=== PATIENT | male | born 1930 | race Caucasian/White ===

== ENCOUNTER 2016-11-23 01:56 | Emergency (ER) | payer OTHER ==
[~2016-11-23] VITALS: Ht 172.7 cm; Wt 62.4 kg
[~2016-11-23 01:56] MED LIST: ASPI81TA19 PO; CEFD300C PO; CIPR0.3S LEFT EAR; ENAL2.5T PO; MULTTAB23 PO; PRED20 PO; WARF-58 PO; [UNRECOGNIZED DRUG - CODE] EACH EAR
[2016-11-23 02:02] VITALS: BP 150/89; PULSE 67; RESP 18; TEMP 98.2; O2SAT 96
[2016-11-23] MEDS ORDERED: TYLETAB34 PO (03:18)
[2016-11-23] MEDS ORDERED: CIPR0.3S LEFT EAR (03:18)
--- NOTE | 2016-11-23 03:23 | PD ---
HPI Chief Complaint: ENT Complaint Time Seen by Provider: 03:13 Travel History International Travel<30 days: No Contact w/Intl Traveler<30days: No Traveled to known affect area: No History of Present Illness HPI 86-year-old male presents to the emergency department for complaint of persistent ear pain and drainage. According to the who relays most of the history patient was seen for left ear pain and swelling prior to Tr[place] and was prescribed cefdinir and eardrops but does not recall the name of the eardrops. Patient was not improving and seemed to be getting worse so came to the emergency department Tr[place] 11/17/16 and was given prescription for Ciprodex drops but could not find a pharmacy that had the Ciprodex drops of received alternative eardrops and completed the course of oral antibiotic. Patient was feeling slightly improved but this morning had recurrent ear pain and returns to the emergency department for reevaluation. No fever no facial or submandibular swelling no lymphadenopathy no difficulty with swallowing continues to have redness and swelling the left ear with some drainage. Left ear pain is 8/10 in intensity. 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) Endocrine: No Gastrointestinal Disorders: No GERD: No Genitourinary: Yes Headaches: No Hypertension: Yes Immune Disorder: No Implanted Vascular Access Dvce: No Kidney Stones: No Musculoskeletal: Yes Neurologic: Yes Psychiatric: No Reproductive: No Respiratory: Yes (BRONCHITIES) Immunizations Current: No Migraines: No Renal Failure: No Seizures: No Sleep Apnea: No Thyroid Disease: No Ulcer: No Influenza Vaccination: No Past Surgical History Abdominal Surgery: Yes (HERNIA REPAIR, COLON SURGERY - NO TUMOR FOUND) Cardiac Surgery: No Ear Surgery: No Endocrine Surgery: No Eye Surgery: Yes (RIGHT EYE TURNED IN) Genitourinary Surgery: Yes (PROSTATE) Neurologic Surgery: No Oral Surgery: No Prostatectomy: Yes Thoracic Surgery: No Other Surgery: Yes Social History Alcohol Use: Yes (1 GLASS WINE/DAILY) Tobacco Use: No Substance Use: No Allergies-Medications (Allergen,Severity, Reaction): Coded Allergies: HMG-CoA Reductase Inhibitors (Unverified Adverse Reaction, Unknown, 11/23/16 ) muscle aches Reported Meds & Prescriptions Reported Meds & Active Scripts Active Reported Multi For Him 50+ (Multiple Vitamins W/ Minerals) 1 Tab Tab 1 Tab PO DAILY Aspir-Low (Aspirin) 81 Mg Tabdr 81 Mg PO DAILY Warfarin 3 Mg Tab 3 Mg PO DAILY Enalapril (Enalapril Maleate) 2.5 Mg Tab 2.5 Mg PO DAILY Review of Systems Except as stated in HPI: all other systems reviewed are Neg Physical Exam Narrative GENERAL: Elderly well-developed male in no acute distress no respiratory distress SKIN: Warm and dry. HEAD: Normocephalic. EYES: No scleral icterus. No injection or drainage. ENT: Mucous membranes moist airway is patent right tympanic membrane no redness dullness or loss of landmarks; left tympanic membrane is not visualized due to soft tissue swelling and erythema of the left external auditory canal with erythema and edema and scant drainage. NECK: Supple, trachea midline. No JVD or lymphadenopathy. CARDIOVASCULAR: Regular rate and rhythm without murmurs, gallops, or rubs. RESPIRATORY: Breath sounds equal bilaterally. No accessory muscle use. GASTROINTESTINAL: Abdomen soft, non-tender, nondistended. MUSCULOSKELETAL: No cyanosis, or edema. BACK: Nontender without obvious deformity. No CVA tenderness. Data Data Last Documented VS Vital Signs Date Time Temp Pulse Resp B/P Pulse Ox O2 Delivery O2 Flow Rate FiO2 11/23/16 02:02 98.2 67 18 150/89 96 MDM Medical Decision Making Medical Screen Exam Complete: Yes Emergency Medical Condition: Yes Medical Record Reviewed: Yes Differential Diagnosis Otitis externa, otitis media, mastoiditis, contact dermatitis, adverse medication reaction Narrative Course Patient with persistent edema of the external auditory canal and retained cerumen and purulence. Discussed with patient here with but patient refuses to have we are work placed as he had one placed to the emergency department and his last visit states it was too painful. Patient's had no fever or chills. Patient is completed a course of oral antibiotic. The patient did not have Ciprodex prescription filled. Patient rates pain 8/10 in intensity and is unable to tolerate nonsteroidal anti-inflammatory medications due to Coumadin therapy. Patient given oral dose of Tylenol 3 and prescription for Ciprodex. Culture obtained. 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 Follow-up with your primary care provider Take Tylenol 3 with codeine as needed for severe pain however be aware that codeine is a narcotic and may impair judgment, delay reaction time, increased risk for fall, use with caution, and may even cause constipation Take acetaminophen/Tylenol as needed for fever 100.4F or greater Med/Other Pt SpecificInfo: Prescription(s) given Scripts Acetaminophen-Codeine (Tylenol-Codeine #3)300-30 mg Tab1 Tab PO Q4H PRN (PAIN) # 7 TAB Ref 0 Prov:Lara Delcid MD 11/23/16 Ciprofloxacin-Dexamethasone Otic Drops (Ciprodex Otic Drops)0.3-0.1% Susp4 Drop LEFT EAR BID #1 BOTTLE Ref 0 Prov:Lara Delcid MD 11/23/16 Lara Delcid MD Nov 23, 2016 03:23
[2016-11-23] MEDS ORDERED: ACETAMINOPHEN/CODEINE 300 MG/30 MG TAB PO ONE (03:30)
== END 2016-11-23 04:31 | disposition home or self-care (01) ==
LOC: PHED 01:56
DX: H60.92 Unspecified otitis externa, left ear (principal); H92.02 Otalgia, left ear; L25.9 Unspecified contact dermatitis, unspecified cause; B96.5 Pseudomonas (aeruginosa) (mallei) (pseudomallei) as the cause of diseases classified elsewhere; I10 Essential (primary) hypertension; I25.10 Atherosclerotic heart disease of native coronary artery without angina pectoris; E78.00 Pure hypercholesterolemia, unspecified; Z79.01 Long term (current) use of anticoagulants
CPT/HCPCS: 87070; 87077; 87186; 99283

== ENCOUNTER 2017-03-04 10:25 | Inpatient (IN) | payer OTHER, MEDICARE ==
[2017-03-04] VITALS (7 sets, daily range): BP systolic 143–183; BP diastolic 67–93; PULSE 50–82; RESP 16–18; TEMP 97.2–98.3; O2SAT 93–97
[~2017-03-04] VITALS: Ht 172.7 cm; Wt 63.0 kg
[~2017-03-04 10:25] MED LIST changes: -CEFD300C PO; -PRED20 PO; +TYLETAB34 PO; -[UNRECOGNIZED DRUG - CODE] EACH EAR
[2017-03-04] MEDS ORDERED: SODIUM CHLORIDE 0.9% FLUSH 10 ML FLUSH IVF PRN (10:45)
--- NOTE | 2017-03-04 10:54 | PD ---
HPI Chief Complaint: Hip Injury Time Seen by Provider: 10:33 Travel History International Travel<30 days: No Contact w/Intl Traveler<30days: No Traveled to known affect area: No History of Present Illness HPI 86-year-old male presents to the emergency department cleaning a left hip pain after her fall. Patient has a history of CVA, left-sided weakness. He was walking in the kitchen when he fell to the side lying on his left hip. He has pain in the left hip, worse with any attempt at movement, and holds the hip flexed. States he normally walks with a walker. He otherwise is been feeling completely well and healthy. He is on warfarin, but denies A. fib. Emphatically denies hitting his head. States she landed on his left hip. He has no pain in his back knee or anywhere else. History Past Medical History Narrative Medical CVA, residual left-sided weakness Hypertension On warfarin Tetanus Vaccination: Unknown Influenza Vaccination: No Social History Alcohol Use: No Tobacco Use: No Allergies-Medications (Allergen,Severity, Reaction): Coded Allergies: HMG-CoA Reductase Inhibitors (Unverified Adverse Reaction, Unknown, 11/23/16 ) muscle aches Reported Meds & Prescriptions Reported Meds & Active Scripts Active Reported Aspir-Low (Aspirin) 81 Mg Tabdr 81 Mg PO DAILY Warfarin 3 Mg Tab 3 Mg PO DAILY Enalapril (Enalapril Maleate) 2.5 Mg Tab 2.5 Mg PO BID Review of Systems Except as stated in HPI: all other systems reviewed are Neg Physical Exam Narrative GENERAL: Well-appearing 86-year-old man, no acute distress. SKIN: Focused skin assessment warm/dry. HEAD: Atraumatic. Normocephalic. NECK: Trachea midline. No JVD. Moves neck freely. CARDIOVASCULAR: Regular rate and rhythm. No murmur appreciated. RESPIRATORY: No accessory muscle use. Clear to auscultation. Breath sounds equal bilaterally. GASTROINTESTINAL: Abdomen soft, non-tender, nondistended. Hepatic and splenic margins not palpable. MUSCULOSKELETAL: Left hip health flaccid, slightly externally rotated. Pain with any tensor range of motion. Knees unremarkable. NEUROLOGICAL: Awake and alert. No obvious cranial nerve deficits. Motor grossly within normal limits. Normal speech. PSYCHIATRIC: Appropriate mood and affect; insight and judgment normal. Data Data Last Documented VS Vital Signs Date Time Temp Pulse Resp B/P Pulse Ox O2 Delivery O2 Flow Rate FiO2 03/04/17 13:09 18 03/04/17 11:26 50 03/04/17 10:35 97.9 159/81 95 Orders Electrocardiogram (03/04/17 10:40) Complete Blood Count With Diff (03/04/17 10:40) Comprehensive Metabolic Panel (03/04/17 10:40) Prothrombin Time / Inr (Pt) (03/04/17 10:40) Act Partial Throm Time (Ptt) (03/04/17 10:40) Urinalysis - C+S If Indicated (03/04/17 10:40) Type And Screen (03/04/17 10:40) Chest, Single Ap (03/04/17 10:40) Femur (Ap & Lat/2vws) (03/04/17 10:40) Hip, Uni(Ap&Lat) W Ap Pelvis (03/04/17 10:40) Iv Access Insert/Monitor (03/04/17 10:40) Oximetry (03/04/17 10:40) Ecg Monitoring (03/04/17 10:40) Sodium Chloride 0.9% Flush (Ns Flush) (03/04/17 10:45) Fentanyl Inj (Fentanyl Inj) (03/04/17 12:00) Fentanyl Inj (Fentanyl Inj) (03/04/17 11:54) Hip, Ap Only Wo Ap Pelvis (03/04/17 ) Fresh Frozen Plasma (Ffp) (03/04/17 12:47) Blood Product Administration .UPON TRANSFUSION (03/04/17 12:47) Sodium Chlor 0.9% 250 Ml Inj (Ns 250 Ml (03/04/17 13:00) Diet Regular Basic (03/04/17 Lunch) Admit Order (Ed Use Only) (03/04/17 ) Labs Laboratory Tests Test 03/04/17 03/04/17 03/04/17 10:45 12:03 12:48 White Blood Count 6.7 TH/MM3 Red Blood Count 3.70 MIL/MM3 Hemoglobin 11.0 GM/DL Hematocrit 34.7 % Mean Corpuscular Volume 93.9 FL Mean Corpuscular Hemoglobin 29.8 PG Mean Corpuscular Hemoglobin 31.8 % Concent Red Cell Distribution Width 15.0 % Platelet Count 399 TH/MM3 Mean Platelet Volume 8.3 FL Neutrophils (%) (Auto) 65.3 % Lymphocytes (%) (Auto) 18.7 % Monocytes (%) (Auto) 13.3 % Eosinophils (%) (Auto) 2.0 % Basophils (%) (Auto) 0.7 % Neutrophils # (Auto) 4.4 TH/MM3 Lymphocytes # (Auto) 1.2 TH/MM3 Monocytes # (Auto) 0.9 TH/MM3 Eosinophils # (Auto) 0.1 TH/MM3 Basophils # (Auto) 0.0 TH/MM3 CBC Comment DIFF FINAL Differential Comment Prothrombin Time 20.5 SEC Prothromb Time International 1.8 RATIO Ratio Activated Partial 29.2 SEC Thromboplast Time Sodium Level 136 MEQ/L Potassium Level 4.3 MEQ/L Chloride Level 104 MEQ/L Carbon Dioxide Level 24.1 MEQ/L Anion Gap 8 MEQ/L Blood Urea Nitrogen 9 MG/DL Creatinine 0.68 MG/DL Estimat Glomerular Filtration 110 ML/MIN Rate Random Glucose 117 MG/DL Calcium Level 8.6 MG/DL Total Bilirubin 0.4 MG/DL Aspartate Amino Transf 30 U/L (AST/SGOT) Alanine Aminotransferase 22 U/L (ALT/SGPT) Alkaline Phosphatase 80 U/L Total Protein 7.3 GM/DL Albumin 3.5 GM/DL Blood Type A POSITIVE Antibody Screen NEGATIVE Blood Bank Comment [facility] Medical Decision Making Medical Screen Exam Complete: Yes Emergency Medical Condition: Yes Interpretation(s) My review of EKG: Sinus bradycardia rate of 51, normal axis, normal intervals, no acute ischemia. LABS: CBC remarkable for mild anemia. CMP is unremarkable. INR 1.8 X-ray left hip and pelvis shows intertrochanteric left hip fracture. Chest x-ray: No acute cardiopulmonary disease. Differential Diagnosis Left hip dislocation, left hip fracture, other occult injury, occult head injury Narrative Course Medical decision making INITIAL: 86-year-old man who presents to the emergency department complaining of left hip pain status post fall with injury. Looks well. See morphine with EMS. Is on warfarin but emphatically denies hitting his head. No pain anywhere else. We'll check x-rays, preop studies, reassess. Physician Communication Physician Communication [facility] She agrees to consult on patient will likely admitted to orthopedics. Spoke with Prakash, physician volunteer assistant with Dr. Walton. Request nothing by mouth after midnight. Would like to reverse warfarin. We'll discuss with Dr. Walton admission. Diagnosis Primary Impression: Closed left hip fracture Qualified Code: S72.002A - Closed left hip fracture, initial encounter Seth Armenta MD Mar 04, 2017 10:54
[2017-03-04 11:05] LABS: AUTOMATED NEUTROPHIL # 4.4 TH/MM3 (1.8-7.7); BASOPHIL % 0.7 % (0.0-2.0); EOSINOPHIL # 0.1 TH/MM3 (0-0.4); HEMATOCRIT 34.7 % (39.0-51.0); HEMO FLAGS DIFF FINAL; LYMPH % 18.7 % (9.0-44.0); LYMPHOCYTE # 1.2 TH/MM3 (1.0-4.8); MEAN CELL VOLUME 93.9 FL (80.0-100.0); MEAN CORPUSCULAR HEMOGLOBIN 29.8 PG (27.0-34.0); MEAN CORPUSCULAR HGB CONC 31.8 % (32.0-36.0); MONO % 13.3 % (0.0-8.0); NEUT % 65.3 % (16.0-70.0); PLATELET COUNT 399 TH/MM3 (150-450); WHITE BLOOD COUNT 6.7 TH/MM3 (4.0-11.0)
[2017-03-04 11:15] LABS: APTT (PATIENT) 29.2 SEC (24.3-30.1); INTERNATIONAL NORMALIZED RATIO 1.8 RATIO; PROTHROMBIN TIME - PATIENT 20.5 SEC (9.8-11.6)
[2017-03-04 11:19] LABS: ALT (GPT) 22 U/L (12-78); ANION GAP 8 MEQ/L (5-15); AST (GOT) 30 U/L (15-37); BICARBONATE 24.1 MEQ/L (21.0-32.0); BLOOD UREA NITROGEN 9 MG/DL (7-18); CHLORIDE 104 MEQ/L (98-107); GLOMERULAR FILTRATION RATE 110 ML/MIN (>89); POTASSIUM 4.3 MEQ/L (3.5-5.1); SODIUM (NA) 136 MEQ/L (136-145)
[2017-03-04 11:21] LABS: ALKALINE PHOSPHATASE 80 U/L (45-117); TOTAL BILIRUBIN ADULT 0.4 MG/DL (0.2-1.0)
--- NOTE | 2017-03-04 11:44 | RADRPT ---
EXAM DATE/TIME: 03/04/2017 10:51 [facility] COMPARISON: CHEST SINGLE AP, April 26, 2015, 16:57. INDICATIONS : Fall. Chest pain. MEDICAL HISTORY : None. SURGICAL HISTORY : None. ENCOUNTER: Initial ACUITY: 1 day PAIN SCORE: 0/10 LOCATION: Bilateral chest FINDINGS: The lungs are clear without infiltrate, nodule, or mass except for possible slight atelectasis in the left lung base. There is no appreciable pleural effusion for technique. Heart and mediastinum are unremarkable. There is old healed left clavicular fracture. There is no pneumothorax for technique. IMPRESSION: No acute cardiopulmonary disease. Orlando Serna MD on March 04, 2017 at 11:41 Board Certified Radiologist. This report was verified electronically.
--- NOTE | 2017-03-04 11:47 | RADRPT ---
EXAM DATE/TIME: 03/04/2017 10:56 [facility] COMPARISON: HIP LEFT (AP&LAT 2/3VWS) W AP PELVIS, March 04, 2017, 10:56. INDICATIONS : Fall. Left hip/leg pain. MEDICAL HISTORY : None. SURGICAL HISTORY : None. ENCOUNTER: Initial ACUITY: 1 day PAIN SCORE: 2/10 LOCATION: Left hip/leg FINDINGS: There is intertrochanteric fracture on the left side. Bony structures are osteopenic. There are ather osclerotic calcifications involving the visualized blood vessels chronic in nature. CONCLUSION: Left intertrochanteric fracture. Orlando Serna MD on March 04, 2017 at 11:44 Board Certified Radiologist. This report was verified electronically.
--- NOTE | 2017-03-04 11:48 | RADRPT ---
EXAM DATE/TIME: 03/04/2017 10:56 [facility] COMPARISON: No previous studies available for comparison. INDICATIONS : Fall. Left hip/pelvic pain. MEDICAL HISTORY : None. SURGICAL HISTORY : None. ENCOUNTER: Initial ACUITY: 1 day PAIN SCORE: 2/10 LOCATION: Left pelvis FINDINGS: Intertrochanteric fracture is present on the left. There are atherosclerotic calcifications involving the visualized blood vessels chronic in nature. There is diffuse osteopenia. CONCLUSION: Intertrochanteric fracture on the left side. Orlando Serna MD on March 04, 2017 at 11:45 Board Certified Radiologist. This report was verified electronically.
[2017-03-04] MEDS ORDERED: fentaNYL CITRATE 250 MCG/5 ML AMP IV PUSH ONE (12:00)
[2017-03-04] MEDS ORDERED: SODIUM CHLOR 0.9% 250 ML INJ 250 ML IV ONE (13:00)
--- NOTE | 2017-03-04 13:14 | RADRPT ---
EXAM DATE/TIME: 03/04/2017 12:42 [facility] COMPARISON: HIP LEFT (AP&LAT 2/3VWS) W AP PELVIS, March 04, 2017, 10:56. INDICATIONS : Post reduction left hip. MEDICAL HISTORY : None. SURGICAL HISTORY : None. ENCOUNTER: Subsequent ACUITY: 1 day PAIN SCORE: 10/10 LOCATION: Left hip. FINDINGS: Intertrochanteric fracture is seen on the left. CONCLUSION: Left intertrochanteric fracture. Orlando Serna MD on March 04, 2017 at 13:12 Board Certified Radiologist. This report was verified electronically.
[2017-03-04] MEDS ORDERED: ONDANSETRON HCL 4 MG/2 ML VIAL IV ONE (14:15)
--- NOTE | 2017-03-04 14:50 | EKG ---
Date Performed: 03/04/2017 Time Performed: 11:21:10 PTAGE: 86 years EKG: SINUS BRADYCARDIA BORDERLINE ECG NO PREVIOUS TRACING DOCTOR: Ernie Peoples Interpretating Date/Time 03/04/2017 14:48:11
--- NOTE | 2017-03-04 16:17 | HHI.HP ---
[facility]ician Krystle Dixon Do, MD Admission Diagnosis intertrochanteric left hip fracture Diagnoses: Chief Complaint: status post fall Travel History International Travel<30 Days: No Contact w/Intl Traveler <30 Da: No Traveled to Known Affected Are: No History of Present Illness patient is an 86 years old male , very hard of hearing, with history of CVA with mild left sided residual weakness,2 1/2 years ago who almost 80% of the time is wheelchair bound however still tries to be active and gets up and ambulate holding on to kitchen table for activity, every am- this time left leg apparently buckled and fell. found him on the floor. sure that he has not been on the floor for a long time as she had just been on the kitchen few minutes before. EMS immediately called and brought in to ER where IC fracture left hip. orthopedic service was informed and patient admitted for further evaluation and management. No syncopal episode notes, no shortness of breath, seizure activity reported. Patient is continent of urine and stools- -- + constipation and uses fibercon. patient currently is comfortable and denies any pain. patient appears comfortable when laying - but gets pain when Left LE is examined and extended even minimally while down in [facility] ER patient voided spontaneously Per , since CVA- left lower extremity would occasionally bucked and gets periodic "jerking" movement- was told may have "restless leg" Review of Systems ROS Limitations: Hearing Impaired Constitutional: DENIES: Diaphoretic episodes, Fatigue, Fever, Weight gain, Weight loss, Chills, Dizziness, Change in appetite, Night Sweats Endocrine: DENIES: Heat/cold intolerance, Polydipsia, Polyuria, Polyphagia Eyes: DENIES: Blurred vision, Diplopia, Eye inflammation, Eye pain, Vision loss , Photosensitivity, Double Vision Ears, nose, mouth, throat: DENIES: Tinnitus, Hearing loss, Vertigo, Nasal discharge, Oral lesions, Throat pain, Hoarseness, Ear Pain, Running Nose, Epistaxis, Sinus Pain, Toothache, Odynophagia Respiratory: DENIES: Apneas, Cough, Snoring, Wheezing, Hemoptysis, Sputum production, Shortness of breath Cardiovascular: DENIES: Chest pain, Palpitations, Syncope, Dyspnea on Exertion , PND, Lower Extremity Edema, Orthopnea, Claudication Gastrointestinal: COMPLAINS OF: Constipation Genitourinary: DENIES: Sexual dysfunction, Urinary frequency, Urinary incontinence, Urgency, Hematuria, Dysuria, Nocturia, Penile Discharge, Testicular Pain, Testicular Swelling Musculoskeletal: DENIES: Joint pain, Muscle aches, Stiffness, Joint Swelling, Back pain, Neck pain Integumentary: DENIES: Abnormal pigmentation, Nail changes, Pruritus, Rash Hematologic/lymphatic: DENIES: Bruising, Lymphadenopathy Immunologic/allergic: DENIES: Eczema, Urticaria Neurologic: DENIES: Abnormal gait, Headache, Localized weakness, Paresthesias, Seizures, Speech Problems, Tremor, Poor Balance Psychiatric: DENIES: Anxiety, Confusion, Mood changes, Depression, Hallucinations, Agitation, Suicidal Ideation, Homicidal Ideation, Delusions Past Family Social History Past Medical History hypertension S/P CVA left sided weakness 2014 Past Surgical History S/P explore lap- open close- for a suspicious colon mass- finding- "scar tissue " right inguinal hernia surgery Reported Medications Enalapril 2.5 mg po bid Coumadin 3 mg po daily ASA 81 mg po daily Fibercon for constipation Magcitrate 300 cc prn for constipation Allergies: Coded Allergies: HMG-CoA Reductase Inhibitors (Unverified Adverse Reaction, Unknown, 11/23/16 ) muscle aches Family History non contributory Social History smoker quit 40 years ago very occasion wine no history substance abuse Physical Exam Vital Signs Vital Signs Date Time Temp Pulse Resp B/P Pulse Ox O2 Delivery O2 Flow Rate FiO2 03/04/17 16:08 98 03/04/17 14:23 97.9 75 175/84 97 03/04/17 14:08 97.8 70 16 183/93 95 03/04/17 13:09 18 03/04/17 11:26 50 18 03/04/17 10:35 97.9 62 18 159/81 95 Physical Exam GENERAL:hard of hearing,in no apparent distress. SKIN: around left elbow area- with some skin tear- with some bleeding from the fall HEAD: Atraumatic. Normocephalic. No temporal or scalp tenderness. EYES: Pupils equal round and reactive. Extraocular motions intact. No scleral icterus. No injection or drainage. ENT: Nose without bleeding, purulent drainage or septal hematoma. Throat without erythema, tonsillar hypertrophy or exudate. Uvula midline. Airway patent. NECK: Trachea midline. No JVD or lymphadenopathy. Supple, nontender, no meningeal signs. CARDIOVASCULAR: Regular rate and rhythm without murmurs, gallops, or rubs. RESPIRATORY: Clear to auscultation. Breath sounds equal bilaterally. No wheezes , rales, or rhonchi. GASTROINTESTINAL: Abdomen soft, non-tender, nondistended. No hepato-splenomegaly , or palpable masses. No guarding., uncircumcised penis MUSCULOSKELETAL: Extremities without clubbing, cyanosis, or edema RLE. normal left LE is externally rotated and flexed on the knee- - marked resistance and pain to full extension, able to wiggle foot and toes, good peripheral pulses NEUROLOGICAL: Awake and alert. Very hard o f hearing. Cranial nerves II through XII intact. Motor - left lower extremity movement limited by pain. Laboratory Laboratory Tests Test 03/04/17 03/04/17 03/04/17 10:45 12:03 12:48 White Blood Count 6.7 Red Blood Count 3.70 Hemoglobin 11.0 Hematocrit 34.7 Mean Corpuscular Volume 93.9 Mean Corpuscular Hemoglobin 29.8 Mean Corpuscular Hemoglobin 31.8 Concent Red Cell Distribution Width 15.0 Platelet Count 399 Mean Platelet Volume 8.3 Neutrophils (%) (Auto) 65.3 Lymphocytes (%) (Auto) 18.7 Monocytes (%) (Auto) 13.3 Eosinophils (%) (Auto) 2.0 Basophils (%) (Auto) 0.7 Neutrophils # (Auto) 4.4 Lymphocytes # (Auto) 1.2 Monocytes # (Auto) 0.9 Eosinophils # (Auto) 0.1 Basophils # (Auto) 0.0 CBC Comment DIFF FINAL Differential Comment Prothrombin Time 20.5 Prothromb Time International 1.8 Ratio Activated Partial 29.2 Thromboplast Time Sodium Level 136 Potassium Level 4.3 Chloride Level 104 Carbon Dioxide Level 24.1 Anion Gap 8 Blood Urea Nitrogen 9 Creatinine 0.68 Estimat Glomerular Filtration 110 Rate Random Glucose 117 Calcium Level 8.6 Total Bilirubin 0.4 Aspartate Amino Transf 30 (AST/SGOT) Alanine Aminotransferase 22 (ALT/SGPT) Alkaline Phosphatase 80 Total Protein 7.3 Albumin 3.5 Blood Type A POSITIVE Antibody Screen NEGATIVE Blood Bank Comment Result Diagram: 03/04/17 1045 03/04/17 1045 Imaging Last Impressions Hip and Pelvis X-Ray 03/04/17 1040 Signed Impressions: Service Date/Time: Saturday, March 04, 2017 10:56 - CONCLUSION: Intertrochanteric fracture on the left side. Orlando Serna MD Femur X-Ray 03/04/17 1040 Signed Impressions: Service Date/Time: Saturday, March 04, 2017 10:56 - CONCLUSION: Left intertrochanteric fracture. Orlando Serna MD Hip X-Ray 03/04/17 0000 Signed Impressions: Service Date/Time: Saturday, March 04, 2017 12:42 - CONCLUSION: Left intertrochanteric fracture. Orlando Serna MD Assessment and Plan Assessment and Plan 86 years old male S/P mechanical fall Left intertrochanteric fracture. Orthopedic service consulted. Family wants to discuss with orthopedics options History of S/P CVA with mild left hemiparesis-- baseline mostly wheelchair bound neuro stable. Coumadin and ASA on hold for possible procedure History of hypertension. continue on enalapril 2.5 mg po bid. CXR and EKG reviewed by me. DC planning- - home with PT vs SNF. will consult case management for DC planning Discussed Condition With patient, and son Physician Certification 2 Midnight Certification Type: Admission for Inpatient Services Order for Inpatient Services The services are ordered in accordance with Medicare regulations or non- Medicare payer requirements, as applicable. In the case of services not specified as inpatient-only, they are appropriately provided as inpatient services in accordance with the 2-midnight benchmark. Estimated LOS (days): 3 days is the estimated time the patient will need to remain in the hospital, assuming treatment plan goals are met and no additional complications. Post-Hospital Plan: Not yet determined Laquita Bermudez MD Mar 04, 2017 16:17
[2017-03-04] MEDS ORDERED: HYDROmorphone HCL PF 1 MG/ML VIAL IV PUSH PRN (17:00)
[2017-03-04] MEDS ORDERED: MAGNESIUM CITRATE SOLN 300 ML BTL PO PRN (17:15)
[2017-03-04] MEDS: ENALAPRIL MALEATE 2.5 MG TAB PO SCH (23:32)
[2017-03-04] MEDS: DEXT 5%-NACL 0.9% 1000 ML INJ 1,000 ML IV SCH (23:37)
[2017-03-04] MEDS ORDERED: LACTATED RINGER'S 1000 ML IV PRN (23:45)
[2017-03-04] MEDS ORDERED: INSULIN HUMAN REGULAR 1,000 UNITS/10 ML VIAL SQ PRN (23:45)
[2017-03-04] MEDS ORDERED: SODIUM CHLORID 0.9% 500 ML IV PRN (23:45)
[2017-03-04] MEDS ORDERED: CHLORHEXIDINE GLUCONATE 2 % 1 PACK (2 CLOTHS) TOPICAL PRN (23:45)
[2017-03-04] MEDS ORDERED: POVIDONE IODINE 5% (ANTISEPSIS KIT) 4 APPLICATIONS EACH NARE PRN (23:45)
[2017-03-04] MEDS ORDERED: METOPROLOL TARTRATE 25 MG TAB PO PRN (23:45)
[2017-03-05 03:50] VITALS: BP 127/67; PULSE 67; RESP 16; TEMP 99.4; O2SAT 92
[2017-03-05 05:51] LABS: INTERNATIONAL NORMALIZED RATIO 1.6 RATIO; PROTHROMBIN TIME - PATIENT 17.5 SEC (9.8-11.6)
--- NOTE | 2017-03-05 06:30 | PD.ORT.PN ---
Subjective Subjective Remarks s/p fall at home hx of stroke and left sided weakness. ambulates with walker. left hip pain Objective Vitals Vital Signs Date Time Temp Pulse Resp B/P Pulse Ox O2 Delivery O2 Flow Rate FiO2 03/05/17 03:50 99.4 67 16 127/67 92 03/04/17 23:50 98.3 65 16 143/67 93 03/04/17 20:40 97.2 57 16 158/67 93 03/04/17 18:51 Room Air 03/04/17 16:08 98 03/04/17 16:00 97.3 82 17 161/93 95 03/04/17 14:23 97.9 75 175/84 97 03/04/17 14:08 97.8 70 16 183/93 95 03/04/17 13:09 18 03/04/17 11:26 50 18 03/04/17 10:35 97.9 62 18 159/81 95 I/O 03/04/17 03/04/17 03/04/17 03/05/17 03/05/17 03/05/17 07:00 15:00 23:00 07:00 15:00 23:00 Intake Total 380 ml 240 ml 286 ml Output Total 500 ml Balance 380 ml -260 ml 286 ml Intake Oral 240 ml IV Total 286 ml FFP 380 ml Output Urine Total 500 ml # Bowel Movements 0 Result Diagram: 03/04/17 1045 03/04/17 1045 Other Results Laboratory Tests Test 03/04/17 03/05/17 10:45 04:44 Prothrombin Time 20.5 SEC 17.5 SEC (9.8-11.6) (9.8-11.6) Prothromb Time International 1.8 RATIO 1.6 RATIO Ratio Imaging Last 24 hours Impressions Hip and Pelvis X-Ray 03/04/17 1040 Signed Impressions: Service Date/Time: Saturday, March 04, 2017 10:56 - CONCLUSION: Intertrochanteric fracture on the left side. Orlando Serna MD Femur X-Ray 03/04/17 1040 Signed Impressions: Service Date/Time: Saturday, March 04, 2017 10:56 - CONCLUSION: Left intertrochanteric fracture. Orlando Serna MD Objective Remarks LLE: pain in hip with motion. NVI distally. Assessment & Plan Assessment and Plan 1) Left Intertroch Hip Fx -NPO -1 unit of FFP -consents -surgery today Prakash Pierson Mar 05, 2017 06:30
[2017-03-05 06:40] VITALS: BP 120/62; PULSE 64; RESP 18; TEMP 98.6; O2SAT 94
[2017-03-05 08:11] VITALS: BP 120/67; PULSE 61; RESP 16; TEMP 99.9; O2SAT 92
[2017-03-05] MEDS: ENALAPRIL MALEATE 2.5 MG TAB PO SCH ×2 (08:20→22:36)
[2017-03-05] MEDS: CALCIUM POLYCARBOPHIL 625 MG TAB PO SCH (09:00)
--- NOTE | 2017-03-05 10:59 | HHI.PR ---
Subjective Remarks patient awake and alert, pain controlled, had a good night looking forward to surgery Objective Vitals Vital Signs Date Time Temp Pulse Resp B/P Pulse Ox O2 Delivery O2 Flow Rate FiO2 03/05/17 08:11 99.9 61 16 120/67 92 03/05/17 06:40 98.6 64 18 120/62 94 03/05/17 03:50 99.4 67 16 127/67 92 03/04/17 23:50 98.3 65 16 143/67 93 03/04/17 20:40 97.2 57 16 158/67 93 03/04/17 18:51 Room Air 03/04/17 16:08 98 03/04/17 16:00 97.3 82 17 161/93 95 03/04/17 14:23 97.9 75 175/84 97 03/04/17 14:08 97.8 70 16 183/93 95 03/04/17 13:09 18 03/04/17 11:26 50 18 I/O 03/04/17 03/04/17 03/04/17 03/05/17 03/05/17 03/05/17 07:00 15:00 23:00 07:00 15:00 23:00 Intake Total 380 ml 240 ml 286 ml 240 ml Output Total 500 ml 350 ml Balance 380 ml -260 ml 286 ml -110 ml Intake Oral 240 ml 240 ml IV Total 286 ml FFP 380 ml Output Urine Total 500 ml 350 ml # Bowel Movements 0 0 Result Diagram: 03/04/17 1045 03/04/17 1045 Imaging Last Impressions Hip and Pelvis X-Ray 03/04/17 1040 Signed Impressions: Service Date/Time: Saturday, March 04, 2017 10:56 - CONCLUSION: Intertrochanteric fracture on the left side. Orlando Serna MD Femur X-Ray 03/04/17 1040 Signed Impressions: Service Date/Time: Saturday, March 04, 2017 10:56 - CONCLUSION: Left intertrochanteric fracture. Orlando Serna MD Hip X-Ray 03/04/17 0000 Signed Impressions: Service Date/Time: Saturday, March 04, 2017 12:42 - CONCLUSION: Left intertrochanteric fracture. Orlando Serna MD Objective Remarks GENERAL: not in any distress SKIN: Warm and dry. EYES: No scleral icterus. No injection or drainage. CARDIOVASCULAR: Regular rate and rhythm without murmurs, gallops, or rubs. RESPIRATORY: Breath sounds equal bilaterally. No accessory muscle use. GASTROINTESTINAL: Abdomen soft, non-tender, nondistended. MUSCULOSKELETAL: No cyanosis, or edema. Left hip- post op dressing in place, no induration moves all extremities spontaneously Procedures 03/04- ORIF left hip A/P Assessment and Plan 86 years old male S/P mechanical fall with Left hip fracture Orthopedics ff- for OR today History of S/P CVA with mild left hemiparesis-- baseline mostly wheelchair bound neuro stable. - coumadin on hold- give FFP History of hypertension. continue on enalapril 2.5 mg po bid. DC planning- - SNF. Laquita Bermudez MD Mar 05, 2017 10:59 Laquita Bermudez MD Mar 05, 2017 10:59
[2017-03-05] MEDS ORDERED: FAMOTIDINE 20 MG/2 ML VIAL ONE (11:33)
[2017-03-05] MEDS ORDERED: VANCOMYCIN HCL 1000 MG VIAL ONE (11:48)
[2017-03-05] MEDS ORDERED: GENTAMICIN SULFATE 80 MG/2 ML VIAL ONE (11:48)
[2017-03-05] MEDS ORDERED: ceFAZolin 2 GM PREMIX 50 ML ONE (11:48)
[2017-03-05] MEDS ORDERED: VITA2000 PO (11:59)
[2017-03-05] MEDS ORDERED: HYDR-3288 PO (11:59)
[2017-03-05] MEDS ORDERED: CALCTAB19 PO (11:59)
[2017-03-05] MEDS ORDERED: ERGO1CAP30 PO (11:59)
[2017-03-05] MEDS ORDERED: NORMOSOL R INJ 1,000 ML IV ONE (12:00)
[2017-03-05] MEDS ORDERED: NEOSTIGMINE 3 MG/3 ML SYR IV ONE (12:00)
[2017-03-05] MEDS ORDERED: PROPOFOL 200 MG/20 ML AMP IV ONE (12:00)
[2017-03-05] MEDS ORDERED: ONDANSETRON HCL 4 MG/2 ML VIAL IV PUSH ONE (12:00)
[2017-03-05] MEDS ORDERED: ePHEDrine/NS 25 MG/5 ML SYR IV ONE (12:00)
[2017-03-05] MEDS ORDERED: fentaNYL CITRATE 250 MCG/5 ML AMP ONE (12:00)
[2017-03-05] MEDS ORDERED: VANCOMYCIN HCL 1000 MG VIAL OTHER ONE (13:10)
[2017-03-05] MEDS ORDERED: BUPIVACAINE/EPINEPHRINE 0.25% PF 30 ML VIAL ONE (13:41)
--- NOTE | 2017-03-05 13:50 | PD.OP ---
cc: Jas Walton MD Operative Report Date of Surgery: Mar 05, 2017 Preoperative Diagnosis: Left hip intertrochanteric fracture Postoperative Diagnosis: Procedure: Left hip reduction and intramedullary nail fixation Anesthesia: Gen. Surgeon: Jas Walton Magneto Electrician(s): Prakash Pierson PA-C The surgical procedure was assisted by my physician assistant director of nursing. My P.A. presence was necessary throughout this case for the manipulation and positioning of the surgical extremity. My P.A. was assisting me throughout the duration of this procedure. The skill set of a physician assistant director of nursing was medically necessary to complete this procedure. During the surgical case the surgical nurse was working at the back table and the physician assistant director of nursing was directly assisting me. Operation and Findings: Implants used: 12 mm 130 Synthes TFNA short troch nail Plan of activity: Weight-bear as tolerated Patient was seen and evaluated preoperatively. The patient has significant hip pain from intertrochanteric hip fracture. The risk and benefits of surgery were discussed in depth with the patient to include bleeding infection nonunion malunion and need for hip replacement painful hardware as well as medical competitions including but not stroke heart attack and . Informed consent was obtained. Operative site was marked. Patient was brought to the operating room and placed on fracture table. IV sedation was administered by anesthesiologist. Timeout procedure was performed. Hip and leg were prepped with alcohol followed by DuraPrep and draped in the usual sterile fashion. IV antibiotics were given prior to incision. Procedure began with reduction of fracture. Traction was applied. The leg was manipulated to achieve reduction. Excellent reduction was achieved. Fluoroscopy was used to confirm reduction. A three inch incision was made proximal to the trochanter. Subcutaneous tissue was dissected bluntly. Guidepin was placed at the tip of the trochanter and advanced into the femoral canal. Fluoroscopy confirmed appropriate guidepin placement. A opening reamer was placed over the guidepin. The Synthes TFNA nail was attached to the insertion handle. Nail was now placed through the tip of the trochanter into the femoral canal. Fluoroscopy confirmed appropriate nail placement. A second incision was made over the lateral thigh. Cannulas were placed through the insertion handle down to the femur. Guidepin was now placed through the femoral nail into the center of the femoral head. Fluoroscopy confirmed appropriate guidepin placement. Screw length was measured. Cannulated drill was placed over the guidepin. Appropriate length lag screw was now placed. Traction was released and compression was applied. The set screw was now tightened in dynamic mode. Using the insertion handle as a guide a distal interlocking screw was drilled and placed. Final fluoroscopy revealed well aligned fracture with well-placed hardware. Incision was closed with 3-0 Vicryl and hank. Sterile dressings were applied. Patient was awakened and transferred to recovery room. Jas Walton MD Mar 05, 2017 13:50
[2017-03-05] MEDS ORDERED: ACETAMINOPHEN/HYDROcodone 325 MG/7.5 MG TAB PO PRN ×2 (14:00→15:00)
[2017-03-05] MEDS ORDERED: ONDANSETRON HCL 4 MG/2 ML VIAL IVP PRN (14:00)
[2017-03-05] MEDS ORDERED: diphenhydrAMINE HCL 25 MG CAP PO PRN (14:00)
[2017-03-05] MEDS ORDERED: SODIUM CHLORIDE 0.9% FLUSH 10 ML FLUSH IV FLUSH PRN (14:15)
[2017-03-05] MEDS ORDERED: *ONDANSETRON 4 MG VIAL PERIprocedural Use ONLY ONE (14:44)
[2017-03-05] MEDS: MORPHINE SULFATE 4 MG/ML INJ IV PUSH PRN (15:00)
[2017-03-05] MEDS ORDERED: ERGOCALCIFEROL (VIT D2) 50,000 UNIT CAP PO ONE (15:00)
[2017-03-05] MEDS ORDERED: MORPHINE SULFATE 8 MG/ML INJ ONE (15:00)
[2017-03-05] MEDS: CALCIUM/VITAMIN D 250 MG/125 U TAB PO SCH (16:17)
[2017-03-05 16:31] VITALS: BP 119/64; PULSE 74; RESP 18; TEMP 97.9; O2SAT 96
--- NOTE | 2017-03-05 16:53 | RADRPT ---
EXAM DATE/TIME: 03/05/2017 13:42 [facility] COMPARISON: HIP LEFT (AP&LAT 2/3VWS) W AP PELVIS, March 04, 2017, 10:56. INDICATIONS : Left hip troch nail MEDICAL HISTORY : None. SURGICAL HISTORY : None. ENCOUNTER: Initial ACUITY: 1 day PAIN SCORE: Non-responsive. LOCATION: Left Hip FINDINGS: Examination of the left hip was performed. Medullary rubina and compression screw securing the left inte rtrochanteric fracture. Fracture fragments are in excellent anatomic alignment. CONCLUSION: Successful open reduction and internal fixation of left intratrochanteric fracture as above. Jaret Holbrook MD on March 05, 2017 at 16:48 Board Certified Radiologist. This report was verified electronically.
--- NOTE | 2017-03-05 17:35 | MB ---
cc: MARIAJOSE WARD TODD DATE OF CONSULTATION: 03/05/2017 REASON FOR CONSULTATION: Left hip intertrochanteric fracture. CONSULTING PHYSICIAN Dr. Hutchinson DAVID Murphy is an 86-year-old male who has a history of previous CVA with mild left-sided weakness. He is in a wheelchair most of the time but does ambulate short distances at home. He states that his left leg buckled and he fell. His found him on the floor. He presented to the emergency room where x-rays revealed a left hip intertrochanteric fracture. He is currently awake and alert on the orthopedic floor. His only complaint is his left hip. Pain is worse with movement and is improved with rest. He denies any dizziness, syncope, loss of consciousness. PAST MEDICAL HISTORY: 1. Hypertension. 2. History of CVA. 3. Chronic hearing loss. PAST SURGICAL HISTORY: 1. Exploratory laparotomy. 2. Inguinal hernia repair. MEDICATIONS: 1. Enalapril. 2. Coumadin. 3. Aspirin. 4. Fibercon. 5. Mag citrate. ALLERGIES: HMG CoA reductase inhibitor. SOCIAL HISTORY: The patient quit smoking 40 years ago. He drinks occasional wine. Denies drug use. FAMILY HISTORY: Noncontributory. REVIEW OF SYSTEMS The patient denies headache, visual changes, neck pain, chest pain, shortness of breath, abdominal pain, recent weight loss. He complains of left hip pain. PHYSICAL EXAMINATION The patient is a well-developed, thin 86 year-old male, who is awake and alert. Vital signs: Temperature 99.9, pulse 61, respirations 16, blood pressure 120/67, O2 sat 92% on room air. Head: The patient is normocephalic. Pupils are equal. Neck: Soft, nontender. Trachea is midline. Abdomen: Soft, nontender, nondistended. Extremities: Examination of bilateral upper extremities reveals no obvious pain or deformity with shoulder, elbow or wrist motion. He has intact sensation of all fingers. He has good capillary refill of all fingers. Skin is intact to both hands. Extremities: Examination of right leg reveals no significant pain with hip, knee or ankle motion. Skin is intact. Dorsalis pedis pulses palpable. Sensation is grossly intact. Examination of left leg reveals pain with any hip motion. He has no tension on his knee, tibia or ankle. Calf, compartments are soft. Dorsalis pedis pulses palpable. Sensation is intact. Skin is intact to left leg. X-RAYS X-rays of left hip reveal a mildly displaced left hip intertrochanteric fracture. IMPRESSION 1. History of CVA 2. Chronic Coumadin use. 3. Hypertension 4. Left hip intertrochanteric fracture. PLAN Treatment options were discussed with the patient. At this point, I would recommend reduction, intramedullary nail fixation. The risks of surgery include bleeding, infection, injury to arteries, nerves, blood vessels, nonunion, malunion, painful hardware, as well as medical complications including blood clot, stroke, heart attack and . All questions were answered. I will plan on surgery today. A mid-level provider in my office, nurse practitioner or PA, may see this patient on a follow-up basis and continue to implement the objective of this plan including: Starting or adjusting medications, injections of muscle, tendon, bursa or joints, cast application, orthotic or brace application, physical therapy, further radiographic studies including x-ray, MRI, CT, ultrasounds or bone scan, vascular studies, neurologic studies, or other specialist consultations, and proceeding with surgical management as appropriate. MD LANCE Nunez/NURY /1:54 PM /5:19 PM
[2017-03-05 19:50] VITALS: BP 134/64; PULSE 63; RESP 19; TEMP 97.3; O2SAT 95
[2017-03-05] MEDS: DEXT 5%-NACL 0.9% 1000 ML INJ 1,000 ML IV SCH (20:41)
[2017-03-05] MEDS: SODIUM CHLORIDE 0.9% FLUSH 10 ML FLUSH IV FLUSH SCH (20:42)
[2017-03-05 22:08] VITALS: O2SAT 95
[2017-03-06] VITALS (19 sets, daily range): BP systolic 90–173; BP diastolic 46–87; PULSE 62–138; RESP 16–20; TEMP 98–99.2; O2SAT 92–98
[2017-03-06] MEDS: MORPHINE SULFATE 4 MG/ML INJ IV PUSH PRN (04:20)
[2017-03-06 08:07] LABS: HEMATOCRIT 31.3 % (39.0-51.0); REVIEW FLAG FINAL
[2017-03-06] MEDS: CALCIUM/VITAMIN D 250 MG/125 U TAB PO SCH ×3 (08:49→18:30)
[2017-03-06] MEDS: ENALAPRIL MALEATE 2.5 MG TAB PO SCH ×2 (08:49→21:00)
[2017-03-06] MEDS: CALCIUM POLYCARBOPHIL 625 MG TAB PO SCH (08:49)
[2017-03-06] MEDS: CHOLECALCIFEROL (VIT D3) 5000 UNIT CAP PO SCH (08:49)
[2017-03-06] MEDS: SODIUM CHLORIDE 0.9% FLUSH 10 ML FLUSH IV FLUSH SCH ×2 (09:00→21:00)
--- NOTE | 2017-03-06 09:56 | HHI.PR ---
Subjective Remarks voiding "leaking" all night small amount of around 15 cc in urinal in the past had been ff by Dr. Moody per Objective Vitals Vital Signs Date Time Temp Pulse Resp B/P Pulse Ox O2 Delivery O2 Flow Rate FiO2 03/06/17 04:40 98.3 62 18 131/71 94 03/06/17 00:10 99.2 73 18 173/82 92 03/05/17 22:08 95 21 03/05/17 19:50 97.3 63 19 134/64 95 03/05/17 18:33 Nasal Cannula 2.00 03/05/17 16:31 97.9 74 18 119/64 96 03/05/17 15:30 Nasal Cannula 2.00 03/05/17 15:00 97.1 58 14 125/57 97 Nasal Cannula 2 03/05/17 14:45 60 13 126/63 97 Nasal Cannula 2 03/05/17 14:30 66 12 128/68 97 Nasal Cannula 2 03/05/17 14:15 73 12 103/55 96 Nasal Cannula 3 03/05/17 14:05 97.0 68 15 101/55 99 Nasal Cannula 3 I/O 03/05/17 03/05/17 03/05/17 03/06/17 03/06/17 03/06/17 07:00 15:00 23:00 07:00 15:00 23:00 Intake Total 286 ml 890 ml 781 ml 331 ml 240 ml Output Total 450 ml Balance 286 ml 440 ml 781 ml 331 ml 240 ml Intake Oral 240 ml 240 ml 240 ml IV Total 286 ml 150 ml 541 ml 331 ml Other 500 ml Output Urine Total 350 ml Estimated Blood Loss 100 ml # Voids 3 1 # Bowel Movements 0 0 0 Result Diagram: 03/06/17 0700 03/04/17 1045 Imaging Last Impressions Hip X-Ray 03/05/17 0000 Signed Impressions: Service Date/Time: Sunday, March 05, 2017 13:42 - CONCLUSION: Successful open reduction and internal fixation of left intratrochanteric fracture as above. Jaret Holbrook MD Hip and Pelvis X-Ray 03/04/17 1040 Signed Impressions: Service Date/Time: Saturday, March 04, 2017 10:56 - CONCLUSION: Intertrochanteric fracture on the left side. Orlando Serna MD Femur X-Ray 03/04/17 1040 Signed Impressions: Service Date/Time: Saturday, March 04, 2017 10:56 - CONCLUSION: Left intertrochanteric fracture. Orlando Serna MD Objective Remarks GENERAL: not in any distress SKIN: Warm and dry. EYES: No scleral icterus. No injection or drainage. CARDIOVASCULAR: Regular rate and rhythm without murmurs, gallops, or rubs. RESPIRATORY: Breath sounds equal bilaterally. No accessory muscle use. GASTROINTESTINAL: Abdomen soft, non-tender, nondistended. MUSCULOSKELETAL: No cyanosis, or edema. Left hip- post op dressing in place, no induration, bladder distended Left LE- slightly flex, some pain on full extension moves all extremities spontaneously Procedures 03/04- ORIF left hip A/P Assessment and Plan 86 years old male S/P mechanical fall with ORIF Left hip fracture 03/05 Orthopedics ff- PT consult Acute Urinary retention- post op see if voiding better when stood up check bladder scan now- straight cath if need- keep maciel if large amount consider flomax then DC maciel in 3 days for voiding trial History of S/P CVA with mild left hemiparesis-- baseline mostly wheelchair bound neuro stable. was on coumadin as OP- currently on Lovenox per ortho History of hypertension. continue on enalapril 2.5 mg po bid. HYpocalcemia/Vit D deficiency on supplements Lovenox for DVT prophylaxis DC planning- - SNF.- Laquita Cowan MD Mar 06, 2017 09:56
--- NOTE | 2017-03-06 10:03 | PD.ORT.PN ---
Subjective Subjective Remarks Resting comfortably with no new complaints. Objective Vitals Vital Signs Date Time Temp Pulse Resp B/P Pulse Ox O2 Delivery O2 Flow Rate FiO2 03/06/17 04:40 98.3 62 18 131/71 94 03/06/17 00:10 99.2 73 18 173/82 92 03/05/17 22:08 95 21 03/05/17 19:50 97.3 63 19 134/64 95 03/05/17 18:33 Nasal Cannula 2.00 03/05/17 16:31 97.9 74 18 119/64 96 03/05/17 15:30 Nasal Cannula 2.00 03/05/17 15:00 97.1 58 14 125/57 97 Nasal Cannula 2 03/05/17 14:45 60 13 126/63 97 Nasal Cannula 2 03/05/17 14:30 66 12 128/68 97 Nasal Cannula 2 03/05/17 14:15 73 12 103/55 96 Nasal Cannula 3 03/05/17 14:05 97.0 68 15 101/55 99 Nasal Cannula 3 I/O 03/05/17 03/05/17 03/05/17 03/06/17 03/06/17 03/06/17 07:00 15:00 23:00 07:00 15:00 23:00 Intake Total 286 ml 890 ml 781 ml 331 ml 240 ml Output Total 450 ml Balance 286 ml 440 ml 781 ml 331 ml 240 ml Intake Oral 240 ml 240 ml 240 ml IV Total 286 ml 150 ml 541 ml 331 ml Other 500 ml Output Urine Total 350 ml Estimated Blood Loss 100 ml # Voids 3 1 # Bowel Movements 0 0 0 Result Diagram: 03/06/17 0700 03/04/17 1045 Imaging Last 24 hours Impressions Hip and Pelvis X-Ray 03/04/17 1040 Signed Impressions: Service Date/Time: Saturday, March 04, 2017 10:56 - CONCLUSION: Intertrochanteric fracture on the left side. Orlando Serna MD Femur X-Ray 03/04/17 1040 Signed Impressions: Service Date/Time: Saturday, March 04, 2017 10:56 - CONCLUSION: Left intertrochanteric fracture. Orlando Serna MD Objective Remarks LLE: Clean dry dressings intact. Is having some difficulty straightening out his knee due to muscle spasms 2 hamstring. Intact sensation distally with strong dorsiflexion plantar flexion foot Assessment & Plan Assessment and Plan 1) Left Intertroch Hip Fx IM nail POD 1 Physical therapy weightbearing as tolerated Daily dressing changes beginning POD 2 Case management for discharge planning to rehabilitation Incentive spirometry Continue Coumadin Follow-up appointment with Dr. Walton or PA in 2 weeks Brendon Bonilla Jr. Mar 06, 2017 10:03
[2017-03-06] MEDS ORDERED: DILTIAZEM HCL 25 MG/5 ML VIAL ONE (13:01)
[2017-03-06] MEDS ORDERED: ENOXAPARIN SODIUM 30 MG/0.3 ML SYRINGE SQ SCH (13:15)
[2017-03-06] MEDS: TAMSULOSIN HCL 0.4 MG CAP PO SCH (13:19)
--- NOTE | 2017-03-06 13:20 | HHI.PR ---
Addendum to Inpatient Note Addendum Reason: Additional Documentation Additional Information patient HR- 150s- patient comfortable, no chest pain or shortness of breath NAD complains of some spasms of the left leg, no calf tenderness 12 LEKG- shows a fib 150s lungs clear irregularly irregular rhythm CArdizem 10mg IVP- rate slow down - rate variable- 90s-130s transfer to [facility] check BMP now Check ECHO, check venous doppler HR- 140s- give another 10 mg IV then start drip 5 mg/hr Cardiology consult known to Dr Mora d/w and patient Laquita Bermudez MD Mar 06, 2017 13:20
[2017-03-06] MEDS ORDERED: METOPROLOL TARTRATE 25 MG TAB PO SCH ×3 (13:30→14:00)
[2017-03-06] MEDS ORDERED: PILL SPLITTER OTHER PRN (13:45)
[2017-03-06] MEDS ORDERED: DILTIAZEM INJ 125 MG in SODIUM CHLORIDE 0.9% INJ 100 ML IV SCH (14:00)
[2017-03-06] MEDS ORDERED: DILTIAZEM HCL 25 MG/5 ML VIAL IV PUSH ONE (14:00)
[2017-03-06] MEDS ORDERED: DILTIAZEM HCL 25 MG/5 ML VIAL IVP ONE (14:00)
--- NOTE | 2017-03-06 16:18 | RADRPT ---
EXAM DATE/TIME: 03/06/2017 14:54 [facility] COMPARISON: No previous studies available for comparison. INDICATIONS : Left leg pain. MEDICAL HISTORY : CVA. PA. Hypercholesterol. Hypertension. SURGICAL HISTORY : Hernia repair. Colon surgery. Prostatectomy. ENCOUNTER: Initial ACUITY: 1 day PAIN SCORE: 0/10 LOCATION: Left leg TECHNIQUE: Venous ultrasound of the leg was performed from the inguinal ligament to the proximal calf. Real-time, color Doppler and spectral tracing, compression and augmentation techniques were us ed. FINDINGS: There is normal compressibility of the deep venous system from the inguinal region to the proximal ca lf. No echogenic clot is seen in the lumen of the common femoral, femoral, popliteal, and posterior tibial veins. There is a normal response of the venous system to proximal and distal augmentation an d respiration. CONCLUSION: There is normal compressibility of the deep venous system from the inguinal region to the proximal calf. No echogenic clot is seen in the lumen of the common femoral, femoral, popliteal , and posterior tibial veins. There is a normal response of the venous system to proximal and distal augmentation and respiration. CONCLUSION: Negative for deep venous thrombosis. Don Valdez MD FACR Don Valdez MD FACR on March 06, 2017 at 16:16 Board Certified Radiologist. This report was verified electronically.
[2017-03-06] MEDS: DEXT 5%-NACL 0.9% 1000 ML INJ 1,000 ML IV SCH (17:17)
[2017-03-06] MEDS: DILTIAZEM HCL 30 MG TAB PO SCH (21:32)
--- NOTE | 2017-03-06 22:03 | EC ---
Study Study Date:03/06/2017 STUDY CONCLUSIONS SUMMARY - Left ventricle: The cavity size was normal. Wall thickness was normal. Systolic function was normal. The estimated ejection fraction was 60%. Wall motion was normal; there were no regional wall motion abnormalities. - Aortic valve: Trace regurgitation. - Mitral valve: Mild regurgitation. If LV function is below 40, please consider prescribing an ACEI or ARB or document rationale for non-use. PROCEDURE DATA STUDY STATUS: Elective. Procedure: Transthoracic echocardiography. Image quality was good. Scanning was performed from the parasternal, apical, and subcostal acoustic windows. Study completion: The patient tolerated the procedure well. Transthoracic echocardiography. M-mode, complete 2D, complete spectral Doppler, and color Doppler. Patient status: Inpatient. CARDIAC ANATOMY LEFT VENTRICLE: The cavity size was normal. Wall thickness was normal. Systolic function was normal. The estimated ejection fraction was 60%. Wall motion was normal; there were no regional wall motion abnormalities. AORTIC VALVE: Trileaflet; mildly thickened leaflets. Doppler: Transvalvular velocity was within the normal range. There was no stenosis. Trace regurgitation. AORTA: Aortic root: The aortic root was normal in size. MITRAL VALVE: Structurally normal valve. Doppler: Transvalvular velocity was within the normal range. There was no evidence for stenosis. Mild regurgitation. Peak gradient: 2mm Hg (D). LEFT ATRIUM: The atrium was normal in size. RIGHT VENTRICLE: The cavity size was normal. Wall thickness was normal. PULMONIC VALVE: Doppler: Transvalvular velocity was within the normal range. There was no evidence for stenosis. No regurgitation. TRICUSPID VALVE: Structurally normal valve. Doppler: Transvalvular velocity was within the normal range. Trace regurgitation. PULMONARY ARTERY: The main pulmonary artery was normal-sized. Systolic pressure was within the normal range. RIGHT ATRIUM: The atrium was normal in size. PERICARDIUM: There was no pericardial effusion. SYSTEMIC VEINS: Inferior vena cava: The vessel was normal in size. BASIC MEASUREMENTS ADULT Normal Left ventricle LV internal dimension, ED, chordal level, *42.2 mm 43-52 PLAX LV internal dimension, ES, chordal level, 31.9 mm 23-38 PLAX Fractional shortening, chordal level, PLAX *24 % >29 LV posterior wall thickness, ED 8.06 mm IVS/LVPW ratio, ED 1.01 <1.3 Ventricular septum Septal thickness, ED 8.12 mm Aortic valve Leaflet separation 21 mm 15-26 Left atrium Anterior-posterior dimension 31 mm Right ventricle RV internal dimension, ED, PLAX 23.4 mm 19-38 BASIC MEASUREMENTS ADULT Normal Aortic valve Leaflet separation 21 mm 15-26 Aorta Root diameter, ED 37 mm 20-37 DOPPLER MEASUREMENTS ADULT Normal Mitral valve Peak E-wave velocity 73.1 cm/s Peak A-wave velocity 43.9 cm/s Peak gradient, D 2 mm Hg Peak E/A ratio 1.7 Tricuspid valve Regurgitant peak velocity 257 cm/s Peak RV-RA gradient, S 26 mm Hg Maximal regurgitant velocity 257 cm/s LEGEND: Mean values are shown as u=mean value. Asterisk (*) fermin values outside specified normal range. Prepared and signed by Drake Nieves [id number]
[2017-03-07] VITALS (19 sets, daily range): BP systolic 97–116; BP diastolic 56–74; PULSE 74–97; RESP 16; TEMP 97.8–99.1; O2SAT 92–98
[2017-03-07] MEDS ORDERED: DILTIAZEM HCL 30 MG TAB PO SCH
[2017-03-07] MEDS: DEXT 5%-NACL 0.9% 1000 ML INJ 1,000 ML IV SCH (00:10)
[2017-03-07] MEDS: DILTIAZEM HCL 30 MG TAB PO SCH ×2 (00:10→05:50)
[2017-03-07 07:16] LABS: POTASSIUM 3.2 MEQ/L (3.5-5.1)
[2017-03-07] MEDS ORDERED: DILTIAZEM-CD 180 MG CAP ER PO ONE (08:15)
[2017-03-07] MEDS ORDERED: RIVAROXABAN 20 MG TAB PO SCH (09:00)
[2017-03-07] MEDS ORDERED: POTASSIUM CHLOR 20 MEQ PREMIX 100 ML IV ONE (09:00)
--- NOTE | 2017-03-07 09:01 | MB ---
cc: [facility] DATE OF CONSULTATION 03/07/2017 REASON FOR CONSULTATION Atrial fibrillation. HISTORY OF PRESENT ILLNESS The patient is an 86-year-old white male with a history of coronary artery disease, CVA, hyperlipidemia, paroxysmal supraventricular tachycardia, hypertension, who was brought to the hospital after a fall resulting in left hip fracture. He is now status post left hip reduction and intramedullary nail fixation two days ago. Here in the hospital he has developed atrial fibrillation. The patient denies chest pain, shortness of breath, dizziness, syncope, near-syncope. Rarely he experiences minimal fluttering palpitations. He also denies pedal edema or paroxysmal nocturnal dyspnea. PAST MEDICAL HISTORY 1. Benign prostatic hypertrophy. 2. Coronary artery disease status post non-ST elevation myocardial infarction 04/27/2015 treated medically. 3. CVA in September 2014. 4. Hyperlipidemia. 5. Hypertension. 6. Paroxysmal supraventricular tachycardia demonstrated on Holter monitoring September 2014. CARDIAC MEDICATIONS AT HOME 1. Enalapril 2.5 mg b.i.d. 2. Warfarin 3 mg daily. 3. Aspirin 81 mg daily. ALLERGIES STATINS. FAMILY HISTORY Noncontributory. SOCIAL HISTORY The patient is a former smoker. There is no history of alcohol abuse. REVIEW OF SYSTEMS As in the History of Present Illness, otherwise negative or noncontributory. He also denies headache, visual changes, unilateral weakness or numbness, abdominal pain, melena, dyspepsia, bright red blood per rectum. PHYSICAL EXAMINATION VITAL SIGNS: Blood pressure 106/63 with a pulse of 85, respirations 16. IN GENERAL: He is a well-developed thin white male in no acute distress. NECK/HEENT EXAMINATION: Jugular venous pressure is normal. Carotid pulses are 2+ bilaterally without bruits. EXAMINATION OF THE CHEST: Clear lung lewis. CARDIAC EXAMINATION: He has an irregularly irregular rhythm without S3 or murmur. ABDOMEN: On abdominal examination he has a soft, nontender abdomen. Bowel sounds are present. There is no definite hepatosplenomegaly. EXAMINATION OF EXTREMITIES: No clubbing, cyanosis or edema. LABORATORY DATA WBC 6.7, hemoglobin 10.4, platelets 399. Potassium 3.2, BUN 11, creatinine 0.72, INR 1.6 on 03/05/2017. CHEST X-RAY No acute disease. EKG From her 02/1917 shows atrial fibrillation, nonspecific lateral ST and T-wave abnormalities. IMPRESSION Paroxysmal atrial fibrillation in this 86-year-old white male with a history of hypertension, coronary artery disease, CVA, paroxysmal supraventricular tachycardia. The patient remains in atrial fibrillation this morning with controlled heart rates on oral Cardizem. There is no evidence for acute coronary syndrome or pulmonary embolism. Indeed his thromboembolic risk with the atrial fibrillation is high given his history of stroke, hypertension and advanced age. Echocardiogram this admission is unremarkable showing normal ejection fraction. RECOMMENDATIONS 1. Continue oral Cardizem. Change to the long-acting form. 2. Overall would favor treating him with Xarelto 20 mg daily if okay from a surgical standpoint. 3. He is cleared for discharge from a cardiac standpoint; we will follow up in the office in about 3-4 weeks Dennis Mora MD [facility]/ADRIEN /8:21 AM /8:43 AM VERÓNICA
--- NOTE | 2017-03-07 09:09 | HHI.PR ---
Subjective Remarks telemetry- atrial fibrillation- rate 70s some plain when left LE fully extended on exam Objective Vitals Vital Signs Date Time Temp Pulse Resp B/P Pulse Ox O2 Delivery O2 Flow Rate FiO2 03/07/17 08:21 93 Nasal Cannula 1.50 03/07/17 08:00 80 03/07/17 07:30 96 Nasal Cannula 2.00 03/07/17 07:30 98.4 85 16 106/63 96 03/07/17 07:00 77 03/07/17 06:00 79 03/07/17 05:00 84 03/07/17 04:00 82 03/07/17 03:00 97.8 85 16 111/74 97 03/07/17 03:00 85 03/07/17 02:00 80 03/07/17 01:00 81 03/07/17 00:00 78 03/07/17 00:00 99.1 78 16 116/69 98 03/06/17 23:00 80 03/06/17 22:00 74 03/06/17 21:30 74 108/60 03/06/17 21:00 72 03/06/17 20:44 97 Nasal Cannula 1.50 03/06/17 20:00 97 Nasal Cannula 2.00 03/06/17 20:00 96 03/06/17 20:00 98.3 81 16 93/56 97 03/06/17 19:00 92 03/06/17 18:00 94 03/06/17 17:00 104 03/06/17 16:00 102 03/06/17 15:00 98.6 96 16 122/73 97 03/06/17 15:00 113 03/06/17 15:00 97 Nasal Cannula 2.00 03/06/17 13:30 98.6 123 16 100/46 97 03/06/17 13:30 98.0 122 20 118/62 93 03/06/17 13:07 98 03/06/17 13:05 84 18 90/52 93 03/06/17 12:10 98.8 138 18 125/87 96 03/06/17 12:02 94 21 I/O 03/06/17 03/06/17 03/06/17 03/07/17 03/07/17 03/07/17 07:00 15:00 23:00 07:00 15:00 23:00 Intake Total 331 ml 240 ml 744 ml Output Total 1850 ml 400 ml Balance 331 ml -1610 ml 344 ml Intake Oral 240 ml 240 ml IV Total 331 ml 504 ml Output Urine Total 1850 ml 400 ml Bladder Scan Volume Amount 887 ml # Voids 1 # Bowel Movements 0 0 Result Diagram: 03/06/17 0700 03/07/17 0620 Imaging Last Impressions Lower Extremity Ultrasound 03/06/17 0000 Signed Impressions: Service Date/Time: Monday, March 06, 2017 14:54 - CONCLUSION: There is normal compressibility of the deep venous system from the inguinal region to the proximal calf. No echogenic clot is seen in the lumen of the common femoral, femoral, popliteal, and posterior tibial veins. There is a normal response of the venous system to proximal and distal augmentation and respiration. CONCLUSION: Negative for deep venous thrombosis. Don Valdez MD Hip X-Ray 03/05/17 0000 Signed Impressions: Service Date/Time: Sunday, March 05, 2017 13:42 - CONCLUSION: Successful open reduction and internal fixation of left intratrochanteric fracture as above. Jaret Holbrook MD Hip and Pelvis X-Ray 03/04/17 1040 Signed Impressions: Service Date/Time: Saturday, March 04, 2017 10:56 - CONCLUSION: Intertrochanteric fracture on the left side. Orlando Serna MD Femur X-Ray 03/04/17 1040 Signed Impressions: Service Date/Time: Saturday, March 04, 2017 10:56 - CONCLUSION: Left intertrochanteric fracture. Orlando Serna MD Objective Remarks GENERAL: not in acute distress SKIN: Warm and dry. EYES: No scleral icterus. No injection or drainage. CARDIOVASCULAR: irregular rhythm RESPIRATORY: Breath sounds equal bilaterally. No accessory muscle use. GASTROINTESTINAL: Abdomen soft, non-tender, nondistended. MUSCULOSKELETAL: No cyanosis, or edema. Left hip- post op dressing in place, no induration Left LE- slightly flex, some pain on full extension moves all extremities spontaneously, grossly intact sensory Procedures 03/04- ORIF left hip Urinary Catheter: Yes Assessment to: Continue Maciel insert reason: Obstruction/Retention Date of Insertion: Mar 06, 2017 A/P Assessment and Plan 86 years old male S/P mechanical fall with ORIF Left hip fracture 03/05 Orthopedics ff- PT ff Acute Urinary retention- post op maciel placed 03/06 started flomax 03/06 then DC maciel in 3 days - 03/09 for voiding trial. OP referral to urology- thru SNF- Health Assessment And Treatment Teacher/Physician- seen by Dr. Moody in the past per Atrial fibrillation - now rate controlled history of paroxsymal a fib per Cardio notes as OP off Cardizem drip. Echo unremarkable Started on Cardizem 180 mg CD daily Xarelto 20 mg daily History of S/P CVA with mild left hemiparesis-- baseline mostly wheelchair bound neuro stable.. ASa daily History of hypertension. monitor on Cardizem CD 18o daily. Enalapril DC- monitor BPs Hypokalemia- replaced with IV K. start po KCL 20 meq po daily. BMP next day- in SNF HYpocalcemia/Vit D deficiency on supplements on Xarelto for A. fib DC planning- - SNF.- CM ff todayFF up with Dr. Alicia in 2 weeks FF up with Dr. Mora in 3 weeks Laquita Bermudez MD Mar 07, 2017 09:09
[2017-03-07] MEDS ORDERED: XARE20TA PO (09:18)
[2017-03-07] MEDS ORDERED: TAMS5CAP PO (09:19)
[2017-03-07] MEDS ORDERED: CARD180T PO (09:22)
[2017-03-07] MEDS ORDERED: POTA-163 PO (09:26)
[2017-03-07] MEDS: CALCIUM POLYCARBOPHIL 625 MG TAB PO SCH (09:29)
[2017-03-07] MEDS: CALCIUM/VITAMIN D 250 MG/125 U TAB PO SCH ×3 (09:29→17:52)
[2017-03-07] MEDS: CHOLECALCIFEROL (VIT D3) 5000 UNIT CAP PO SCH (09:29)
[2017-03-07] MEDS: TAMSULOSIN HCL 0.4 MG CAP PO SCH (09:30)
[2017-03-07] MEDS: SODIUM CHLORIDE 0.9% FLUSH 10 ML FLUSH IV FLUSH SCH (09:41)
--- NOTE | 2017-03-07 09:44 | HHI.DS ---
Discharge Summary Admission Date Mar 04, 2017 at 14:00 Discharge Date: Mar 07, 2017 Admitting Diagnosis intertrochanteric left hip fracture (1) Closed left hip fracture ICD Code: S72.002A Diagnosis: Principal (2) Atrial fibrillation ICD Code: I48.91 Diagnosis: Principal (3) Paroxysmal supraventricular tachycardia ICD Code: I47.1 Diagnosis: Principal (4) acute postop retention/hx BPH Diagnosis: Principal Procedures 03/04- ORIF left hip Brief History - From Admission patient is an 86 years old male , very hard of hearing, with history of CVA with mild left sided residual weakness,2 1/2 years ago who almost 80% of the time is wheelchair bound however still tries to be active and gets up and ambulate holding on to kitchen table for activity, every am- this time left leg apparently buckled and fell. found him on the floor. sure that he has not been on the floor for a long time as she had just been on the kitchen few minutes before. EMS immediately called and brought in to ER where IC fracture left hip. orthopedic service was informed and patient admitted for further evaluation and management. No syncopal episode notes, no shortness of breath, seizure activity reported. Patient is continent of urine and stools- -- + constipation and uses fibercon. patient currently is comfortable and denies any pain. patient appears comfortable when laying - but gets pain when Left LE is examined and extended even minimally while down in [facility] ER patient voided spontaneously Per , since CVA- left lower extremity would occasionally bucked and gets periodic "jerking" movement- was told may have "restless leg CBC/BMP: 03/06/17 0700 03/07/17 0620 Significant Findings Laboratory Tests Test 03/04/17 03/05/17 03/05/17 03/06/17 10:45 04:44 19:25 07:00 Red Blood Count 3.70 MIL/MM3 (4.50-5.90) Hemoglobin 11.0 GM/DL 10.4 GM/DL (13.0-17.0) (13.0-17.0) Hematocrit 34.7 % 31.3 % (39.0-51.0) (39.0-51.0) Mean Corpuscular Hemoglobin 31.8 % Concent (32.0-36.0) Monocytes (%) (Auto) 13.3 % (0.0-8.0) Prothrombin Time 20.5 SEC 17.5 SEC (9.8-11.6) (9.8-11.6) Random Glucose 117 MG/DL (74-106) 25-Hydroxy Vitamin D Total 16.1 ng/ML (30-100) Test 03/07/17 06:20 Potassium Level 3.2 MEQ/L (3.5-5.1) Random Glucose 115 MG/DL (74-106) Imaging Last Impressions Lower Extremity Ultrasound 03/06/17 0000 Signed Impressions: Service Date/Time: Monday, March 06, 2017 14:54 - CONCLUSION: There is normal compressibility of the deep venous system from the inguinal region to the proximal calf. No echogenic clot is seen in the lumen of the common femoral, femoral, popliteal, and posterior tibial veins. There is a normal response of the venous system to proximal and distal augmentation and respiration. CONCLUSION: Negative for deep venous thrombosis. Don Valdez MD Hip X-Ray 03/05/17 0000 Signed Impressions: Service Date/Time: Sunday, March 05, 2017 13:42 - CONCLUSION: Successful open reduction and internal fixation of left intratrochanteric fracture as above. Jaret Holbrook MD Hip and Pelvis X-Ray 03/04/17 1040 Signed Impressions: Service Date/Time: Saturday, March 04, 2017 10:56 - CONCLUSION: Intertrochanteric fracture on the left side. Orlando Serna MD Femur X-Ray 03/04/17 1040 Signed Impressions: Service Date/Time: Saturday, March 04, 2017 10:56 - CONCLUSION: Left intertrochanteric fracture. Orlando Serna MD PE at Discharge GENERAL: not in acute distress SKIN: Warm and dry. EYES: No scleral icterus. No injection or drainage. CARDIOVASCULAR: irregular rhythm RESPIRATORY: Breath sounds equal bilaterally. No accessory muscle use. GASTROINTESTINAL: Abdomen soft, non-tender, nondistended. MUSCULOSKELETAL: No cyanosis, or edema. Left hip- post op dressing in place, no induration Left LE- slightly flex, some pain on full extension, no calf swelling or tenderness moves all extremities spontaneously, grossly intact sensory Pt update on day of discharge awake and alert, oriented 3, pain conterolled doing well with PT telemetry- a fib- rate controlled Hospital Course 86 years old male S/P mechanical fall with ORIF Left hip fracture 03/05 Orthopedics ff- PT ff. doing well Left knee immobilizer-- per PT recommendation history of previous CVA Acute Urinary retention- post op maciel placed 03/06 started flomax 03/06 then DC mcaiel in 3 days - 03/09 for voiding trial. OP referral to urology- thru SNF- Telephone Clerk/Physician- seen by Dr. Moody in the past per Atrial fibrillation - now rate controlled history of paroxsymal a fib per Cardio notes as OP off Cardizem drip. Echo unremarkable Started on Cardizem 180 mg CD daily Xarelto 20 mg daily History of S/P CVA with mild left hemiparesis-- baseline mostly wheelchair bound neuro stable.. ASa daily History of hypertension. monitor on Cardizem CD 18o daily. Enalapril DC- monitor BPs Hypokalemia- replaced with IV K. start po KCL 20 meq po daily. BMP next day- in SNF HYpocalcemia/Vit D deficiency on supplements on Xarelto for A. fib DC planning- - SNF.- CM ff todayFF up with Dr. Alicia in 2 weeks FF up with Dr. Mora in 3 weeks Pt Condition on Discharge: Stable Discharge Disposition: Discharge to SNF Discharge Time: <= 30 minutes Discharge Instructions DIET: Follow Instructions for: Heart Healthy Diet Activities you can perform: Weight Bearing as Ehsan Other Activity Instructions: see specific ortho instruction Follow up Referrals: Cardiology - 3 Weeks with Dennis Mora MD Orthopedics - 2 Weeks with Jas Alicia MD New Orders: BASIC METABOLIC PROF - 03/08/17 New Medications: Calcium Carbonate-Vitamin D (Calcium 600+D 200) 600-200 Mg-Unit Tab 1 TAB PO BID Nutritional Supplement Days 30 Ref 0 TAB Cholecalciferol (Vitamin D3) 2,000 Unit Cap 2000 UNITS PO DAILY Nutritional Supplement #56 Ref 0 CAP Diltiazem ER 24 HR (Cardizem LA) 180 Mg Billy 180 MG PO DAILY PRN AFIB #30 Ref 1 TAB Ergocalciferol (Ergocalciferol) 50,000 Unit Cap 74677 UNITS PO Q7D Nutritional Supplement #56 CAP Hydrocodone-Acetaminophen ([place]) 7.5-325 mg Tab 1 TAB PO Q4H PRN PAIN #60 Ref 0 TAB Potassium Chloride ER (Potassium Chloride ER) 20 Meq Tab 20 MEQ PO DAILY Electrolyte Replacement #30 Ref 0 TAB Rivaroxaban (Xarelto) 20 Mg Tab 20 MG PO DAILY AFIB Days 30 TAB Tamsulosin (Flomax) 0.4 Mg Cap 0.4 MG PO DAILY URINRET Days 30 CAP Continued Medications: Aspirin DR (Aspir-Low) 81 Mg Tabdr 81 MG PO DAILY Laquita Bermudez MD Mar 07, 2017 09:44
[2017-03-07] MEDS ORDERED: KNEE IMMOBILIZE1 MIS (09:56)
[2017-03-07] MEDS ORDERED: ASPIRIN 81 MG CHEW TAB CHEW SCH (11:00)
--- NOTE | 2017-03-07 13:52 | EKG ---
Date Performed: 03/06/2017 Time Performed: 13:04:04 PTAGE: 86 years EKG: ATRIAL FIBRILLATION WITH RAPID VENTRICULAR RESPONSE NONSPECIFIC ST & T-WAVE ABNORMALITY ABN ORMAL RHYTHM ECG PREVIOUS TRACING : 03/04/2017 11.21 Compared to the previous tracing atrial fibrillation with r apid response has replaced normal Sinus rhythm . DOCTOR: Bob Jon Interpretating Date/Time 03/07/2017 13:49:47
[2017-03-07] MEDS ORDERED: DOCU1CAP39 PO (14:33)
[2017-03-07] MEDS ORDERED: SOD PHOSPHATE/SOD BIPHOSPHATE (ADULT) ENEMA 133ML RECTAL ONE (14:45)
[2017-03-07] MEDS ORDERED: DOCUSATE SODIUM 100 MG CAP PO SCH (15:00)
== END 2017-03-07 19:18 | DRG 481 ==
LOC: NEPC 10:25 → NEDA 14:00 → N06A 16:30 → HCIN 03-06 13:43
PROVIDERS: ADMIT Internal Medicine; ATTEND Internal Medicine
PROC: 30233K1 Transfusion of Nonautologous Frozen Plasma into Peripheral Vein, Percutaneous Approach (ICD-10-PCS; 2017-03-04)
PROC: 0QS736Z Reposition Left Upper Femur with Intramedullary Internal Fixation Device, Percutaneous Approach (ICD-10-PCS; principal; 2017-03-05 12:56)
PROC: 0T9B70Z Drainage of Bladder with Drainage Device, Via Natural or Artificial Opening (ICD-10-PCS; 2017-03-06)
DX: S72.142A Displaced intertrochanteric fracture of left femur, initial encounter for closed fracture (principal); I69.354 Hemiplegia and hemiparesis following cerebral infarction affecting left non-dominant side; I48.0 Paroxysmal atrial fibrillation; I47.1 Supraventricular tachycardia; W18.30XA Fall on same level, unspecified, initial encounter; Y92.099 Unspecified place in other non-institutional residence as the place of occurrence of the external cause; Y99.9 Unspecified external cause status; I10 Essential (primary) hypertension; Y92.000 Kitchen of unspecified non-institutional (private) residence as the place of occurrence of the external cause; Y93.01 Activity, walking, marching and hiking; Z79.01 Long term (current) use of anticoagulants; K59.00 Constipation, unspecified; Z87.891 Personal history of nicotine dependence; H91.90 Unspecified hearing loss, unspecified ear; Z99.3 Dependence on wheelchair; E78.5 Hyperlipidemia, unspecified; I25.10 Atherosclerotic heart disease of native coronary artery without angina pectoris; I25.2 Old myocardial infarction; N40.1 Benign prostatic hyperplasia with lower urinary tract symptoms; R33.8 Other retention of urine; N99.89 Other postprocedural complications and disorders of genitourinary system; Y83.8 Other surgical procedures as the cause of abnormal reaction of the patient, or of later complication, without mention of misadventure at the time of the procedure; Y92.239 Unspecified place in hospital as the place of occurrence of the external cause; E55.9 Vitamin D deficiency, unspecified
CPT/HCPCS: 36430; 71010; 73501; 73502; 73503; 73552; 76000; 80048; 80053; 82306; 82948; 85014; 85018; 85025; 85610; 85730; 86850; 86900; 86901; 86927; 93005; 93306; 93971; 96374; C1713; J0690; J1170; J1580; J1650; J2270; J2405; J2710; J3010; J3370; J3480; J7042; J7050; J7120; L1830; P9017

== ENCOUNTER 2017-08-11 18:53 | Emergency (ER) | payer OTHER ==
[~2017-08-11] VITALS: Ht 170.2 cm; Wt 60.3 kg
[~2017-08-11 18:53] MED LIST changes: +CALCTAB19 PO; +CARD180T PO; -CIPR0.3S LEFT EAR; +DOCU1CAP39 PO; +ERGO1CAP30 PO; +HYDR-3288 PO; +KNEE IMMOBILIZE1 MIS; -MULTTAB23 PO; +POTA-163 PO; +TAMS5CAP PO; -TYLETAB34 PO; +VITA2000 PO; +XARE20TA PO
[2017-08-11 18:56] VITALS: BP 159/75; TEMP 98.2; O2SAT 95
[2017-08-11 19:26] VITALS: BP 169/84; PULSE 59; RESP 16; O2SAT 100
[2017-08-11] MEDS ORDERED: HYDR500C PO (19:27)
--- NOTE | 2017-08-11 19:27 | PD ---
HPI Chief Complaint: Lump, Cyst, Hernia Time Seen by Provider: 19:03 Travel History International Travel<30 days: No Contact w/Intl Traveler<30days: No Traveled to known affect area: No History of Present Illness HPI The patient is an 86-year-old male who is taking Coumadin who had a shot 3-4 weeks ago in his right shoulder, apparently a steroid shot, because of shoulder pain. The shot was given by his orthopedic surgeon, Dr. Alicia. Yesterday the noted blueness in the antecubital fossa on the right. The did the INR this morning using a machine that she has at home and it was 3.0. The patient denies any melanotic or bloody stools. He denies any other lesions similar to the one on the antecubital fossa, severe headache, neurologic symptoms, epistaxis, hemoptysis or hematuria. The area is not painful in the right antecubital fossa. PFSH Past Medical History Hx Anticoagulant Therapy: Yes Arthritis: Yes Asthma: No Blood Disorders: No Anxiety: No Depression: No Heart Rhythm Problems: No Cancer: No Cardiovascular Problems: Yes ("MILD HEART ATTACK" 2014) High Cholesterol: Yes Chest Pain: No Congestive Heart Failure: No COPD: No Cerebrovascular Accident: Yes Diabetes: No Diminished Hearing: No Endocrine: No Gastrointestinal Disorders: No GERD: No Genitourinary: Yes Headaches: No Hypertension: Yes Immune Disorder: No Implanted Vascular Access Dvce: No Kidney Stones: No Musculoskeletal: Yes Neurologic: Yes Psychiatric: No Reproductive: No Respiratory: No Immunizations Current: No Migraines: No Renal Failure: No Seizures: No Sleep Apnea: No Thyroid Disease: No Ulcer: No Past Surgical History Abdominal Surgery: Yes (HERNIA REPAIR, COLON SURGERY - NO TUMOR FOUND) Cardiac Surgery: No Ear Surgery: No Endocrine Surgery: No Eye Surgery: Yes (RIGHT EYE TURNED IN) Genitourinary Surgery: Yes (PROSTATE) Neurologic Surgery: No Oral Surgery: No Prostatectomy: Yes Thoracic Surgery: No Other Surgery: Yes Social History Alcohol Use: No Tobacco Use: No Substance Use: No Allergies-Medications (Allergen,Severity, Reaction): Coded Allergies: amlodipine (Unverified Adverse Reaction, Unknown, 08/11/17) muscle aches atorvastatin (Unverified Adverse Reaction, Unknown, 08/11/17) muscle aches pravastatin (Unverified Adverse Reaction, Unknown, 08/11/17) muscle aches simvastatin (Unverified Adverse Reaction, Unknown, 08/11/17) muscle aches Reported Meds & Prescriptions Reported Meds & Active Scripts Active Dok (Docusate Sodium) 100 Mg Cap 100 Mg PO BID 10 Days Knee Immobilizer 22"/Tri 1 Mis Mis 1 Ea .ROUTE DIRECTED Potassium Chloride ER (Potassium Chloride) 20 Meq Tab 20 Meq PO DAILY Cardizem LA (Diltiazem ER 24 HR) 180 Mg Billy 180 Mg PO DAILY PRN Flomax (Tamsulosin HCl) 0.4 Mg Cap 0.4 Mg PO DAILY 30 Days Xarelto (Rivaroxaban) 20 Mg Tab 20 Mg PO DAILY 30 Days Calcium 600+D 200 (Calcium Carbonate-Vitamin D) 600-200 Mg-Unit Tab 1 Tab PO BID 30 Days Vitamin D3 (Cholecalciferol) 2,000 Unit Cap 2,000 Units PO DAILY Ergocalciferol 50,000 Unit Cap 50,000 Units PO Q7D [place] (Hydrocodone-Acetaminophen) 7.5-325 mg Tab 1 Tab PO Q4H PRN Reported Aspir-Low (Aspirin) 81 Mg Tabdr 81 Mg PO DAILY Warfarin 3 Mg Tab 3 Mg PO DAILY Enalapril (Enalapril Maleate) 2.5 Mg Tab 2.5 Mg PO BID Review of Systems Except as stated in HPI: all other systems reviewed are Neg Physical Exam Narrative GENERAL: Well-nourished, alert and oriented, elderly patient in no apparent distress with his right antecubital fossa hematoma. His vital signs show blood pressure 159/75 and pulse rate of 58 but are otherwise normal. SKIN: Focused skin assessment warm/dry. There is a loose area of skin discoloration and small hematoma in the right antecubital fossa measuring about 3 x 1 cm. The area is not tender and there is no evidence of infection. There is yellow skin discoloration that starts at the shoulder and goes all the way down to the antecubital fossa. HEAD: Normocephalic. EYES: No scleral icterus. No injection or drainage. NECK: Supple, trachea midline. No JVD or lymphadenopathy. CARDIOVASCULAR: Regular rate and rhythm without murmurs, gallops, or rubs. RESPIRATORY: Breath sounds equal bilaterally. No accessory muscle use. GASTROINTESTINAL: Abdomen soft, non-tender, nondistended. MUSCULOSKELETAL: No cyanosis, or edema. BACK: Nontender without obvious deformity. No CVA tenderness. Data Data Last Documented VS Vital Signs Date Time Temp Pulse Resp B/P (MAP) Pulse Ox O2 Delivery O2 Flow Rate FiO2 08/11/17 18:56 98.2 58 20 159/75 (103) 95 MDM Medical Decision Making Medical Screen Exam Complete: Yes Emergency Medical Condition: Yes Medical Record Reviewed: Yes Differential Diagnosis Cellulitis right antecubital fossa, hematoma right antecubital fossa, coagulopathy from Coumadin, abscess Narrative Course There is no evidence for cellulitis, the area is not tender and is not hot. The Coumadin coagulopathy is unlikely, the patient had a normal INR this morning and there are no other signs of bleeding on this patient. This is not an abscess. The patient has a hematoma on the right antecubital fossa that was likely from the steroid injection done 3-4 weeks ago on the right shoulder. There is yellow and is tracking down from the right shoulder all the way to the antecubital fossa. The blood apparently worked its way down to the antecubital fossa. The area is not tender. Diagnosis Primary Impression: Hematoma Additional Instructions: As we discussed, elevate your arm above your heart. Keep a close eye for infection, it will become warm/hot and painful. Return immediately if this occurs. Follow-up with Dr. Alicia as scheduled. Also keep a close eye out for signs of Coumadin toxicity like black or bloody stools, other bruises forming. Med/Other Pt SpecificInfo: No Change to Meds Disposition: 01 DISCHARGE HOME Condition: Stable Luisito Ayoub MD Aug 11, 2017 19:27
[2017-08-11 19:34] VITALS: BP 147/74
== END 2017-08-11 19:44 | disposition home or self-care (01) ==
LOC: PHED 18:53
DX: S40.011A Contusion of right shoulder, initial encounter (principal); Y83.8 Other surgical procedures as the cause of abnormal reaction of the patient, or of later complication, without mention of misadventure at the time of the procedure; E78.00 Pure hypercholesterolemia, unspecified; I10 Essential (primary) hypertension; I25.2 Old myocardial infarction; Z86.73 Personal history of transient ischemic attack (TIA), and cerebral infarction without residual deficits; Z79.01 Long term (current) use of anticoagulants
CPT/HCPCS: 99282

== ENCOUNTER 2017-11-07 11:55 | Emergency (ER) | payer OTHER ==
[~2017-11-07] VITALS: Ht 172.7 cm; Wt 61.6 kg
[~2017-11-07 11:55] MED LIST changes: -ERGO1CAP30 PO; +HYDR500C PO; -POTA-163 PO; +VITA500012 PO; -XARE20TA PO
[2017-11-07 12:11] VITALS: BP 161/81; PULSE 60; RESP 18; TEMP 98.4; O2SAT 96
--- NOTE | 2017-11-07 12:25 | PD ---
HPI Chief Complaint: Musculoskeletal Complaint Time Seen by Provider: 12:12 Travel History International Travel<30 days: No Contact w/Intl Traveler<30days: No Traveled to known affect area: No History of Present Illness HPI Patient's 87 years old and complains of pain in the right upper quadrant and left upper quadrant. The pain is most noticeable overlying the inferior costal margins bilaterally. He was started on ruvoastatin last Saturday and after the first symptoms started abated somewhat after stopping the medication for 2 days and then return even worse after resuming it 2 days previously. It has since remained. It's worse with palpation. No shortness of breath. No fever nausea or vomiting. notes patient had black stool this morning. The patient takes Coumadin. Last colonoscopy was about 5 years ago. PFSH Past Medical History Hx Anticoagulant Therapy: Yes (Warfarin ) Arthritis: Yes Asthma: No Blood Disorders: No Anxiety: No Depression: No Heart Rhythm Problems: No Cancer: No Cardiovascular Problems: Yes (high chol) High Cholesterol: Yes Chest Pain: No Congestive Heart Failure: No COPD: No Cerebrovascular Accident: Yes Diabetes: No Diminished Hearing: No Endocrine: No Gastrointestinal Disorders: No GERD: No Genitourinary: Yes Headaches: No Hypertension: Yes Immune Disorder: No Implanted Vascular Access Dvce: No Kidney Stones: No Musculoskeletal: Yes Neurologic: Yes Psychiatric: No Reproductive: No Respiratory: No Immunizations Current: No Migraines: No Renal Failure: No Seizures: No Sleep Apnea: No Thyroid Disease: No Ulcer: No Past Surgical History Abdominal Surgery: Yes (HERNIA REPAIR, COLON SURGERY - NO TUMOR FOUND) Cardiac Surgery: No Ear Surgery: No Endocrine Surgery: No Eye Surgery: Yes (RIGHT EYE TURNED IN) Genitourinary Surgery: Yes (PROSTATE) Neurologic Surgery: No Oral Surgery: No Prostatectomy: Yes Thoracic Surgery: No Other Surgery: Yes Social History Alcohol Use: No Tobacco Use: No Substance Use: No Allergies-Medications (Allergen,Severity, Reaction): Coded Allergies: amlodipine (Unverified Adverse Reaction, Unknown, 08/11/17) muscle aches atorvastatin (Unverified Adverse Reaction, Unknown, 08/11/17) muscle aches pravastatin (Unverified Adverse Reaction, Unknown, 08/11/17) muscle aches simvastatin (Unverified Adverse Reaction, Unknown, 08/11/17) muscle aches Reported Meds & Prescriptions Reported Meds & Active Scripts Active Hydrocodone-Acetaminophen 5-325 mg Tab 1 Tab PO Q6H PRN Dok (Docusate Sodium) 100 Mg Cap 100 Mg PO BID 10 Days Knee Immobilizer 22"/Tri 1 Mis Mis 1 Ea .ROUTE DIRECTED Cardizem LA (Diltiazem ER 24 HR) 180 Mg Billy 180 Mg PO DAILY PRN Reported Rosuvastatin (Rosuvastatin Calcium) 5 Mg Tab 5 Mg PO DAILY Hydrea (Hydroxyurea) 500 Mg Cap 500 Mg PO DAILY Aspir-Low (Aspirin) 81 Mg Tabdr 81 Mg PO DAILY Warfarin 3 Mg Tab 3 Mg PO DAILY Review of Systems Except as stated in HPI: all other systems reviewed are Neg General / Constitutional: No: Fever Cardiovascular: Positive: Chest Pain or Discomfort Physical Exam Narrative GENERAL: 87 yo m, wnwd, mild distress 2/2 pain SKIN: Warm and dry. HEAD: Atraumatic. Normocephalic. EYES: Pupils equal and round. No scleral icterus. No injection or drainage. ENT: No nasal bleeding or discharge. Mucous membranes pink and moist. NECK: Trachea midline. No JVD. CARDIOVASCULAR: Regular rhythm. Rate in the 60s RESPIRATORY: Breath sounds clear bilaterally. Minimal TTP overlying inferior costal margins bilaterally. GASTROINTESTINAL: Abdomen soft, non-tender, nondistended. Hepatic and splenic margins not palpable. MUSCULOSKELETAL: Extremities without clubbing, cyanosis, or edema. No obvious deformities. NEUROLOGICAL: Awake and alert. No obvious cranial nerve deficits. Motor grossly within normal limits. Five out of 5 muscle strength in the arms and legs. Normal speech. PSYCHIATRIC: Appropriate mood and affect; insight and judgment normal. Data Data Last Documented VS Vital Signs Date Time Temp Pulse Resp B/P (MAP) Pulse Ox O2 Delivery O2 Flow Rate FiO2 11/07/17 12:40 96 Room Air 11/07/17 12:11 60 18 161/81 (107) 98.4 Orders Orders Electrocardiogram (11/07/17 12:20) Ckmb (Isoenzyme) Profile (11/07/17 12:20) Complete Blood Count With Diff (11/07/17 12:20) Comprehensive Metabolic Panel (11/07/17 12:20) Magnesium (Mg) (11/07/17 12:20) Prothrombin Time / Inr (Pt) (11/07/17 12:20) Act Partial Throm Time (Ptt) (11/07/17 12:20) Troponin I (11/07/17 12:20) Ecg Monitoring (11/07/17 12:20) Iv Access Insert/Monitor (11/07/17 12:20) Oximetry (11/07/17 12:20) Oxygen Administration (11/07/17 12:20) Morphine Inj (Morphine Inj) (11/07/17 12:30) Sodium Chloride 0.9% Flush (Ns Flush) (11/07/17 12:30) Morphine Inj (Morphine Inj) (11/07/17 12:30) CKMB (11/07/17 12:20) CKMB% (11/07/17 12:20) Ed Discharge Order (11/07/17 13:40) Labs Laboratory Tests Test 11/07/17 12:20 White Blood Count 7.3 TH/MM3 Red Blood Count 4.02 MIL/MM3 Hemoglobin 13.8 GM/DL Hematocrit 43.9 % Mean Corpuscular Volume 109.1 FL Mean Corpuscular Hemoglobin 34.3 PG Mean Corpuscular Hemoglobin Concent 31.5 % Red Cell Distribution Width 14.2 % Platelet Count 493 TH/MM3 Mean Platelet Volume 8.5 FL Neutrophils (%) (Auto) 67.5 % Lymphocytes (%) (Auto) 18.0 % Monocytes (%) (Auto) 13.3 % Eosinophils (%) (Auto) 0.5 % Basophils (%) (Auto) 0.7 % Neutrophils # (Auto) 4.9 TH/MM3 Lymphocytes # (Auto) 1.3 TH/MM3 Monocytes # (Auto) 1.0 TH/MM3 Eosinophils # (Auto) 0.0 TH/MM3 Basophils # (Auto) 0.1 TH/MM3 CBC Comment DIFF FINAL Differential Comment Prothrombin Time 23.6 SEC Prothromb Time International Ratio 2.3 RATIO Activated Partial Thromboplast Time 32.4 SEC Blood Urea Nitrogen 12 MG/DL Creatinine 0.86 MG/DL Random Glucose 82 MG/DL Total Protein 8.6 GM/DL Albumin 4.1 GM/DL Calcium Level 8.9 MG/DL Magnesium Level 2.7 MG/DL Alkaline Phosphatase 123 U/L Aspartate Amino Transf (AST/SGOT) 30 U/L Alanine Aminotransferase (ALT/SGPT) 26 U/L Total Bilirubin 0.4 MG/DL Sodium Level 136 MEQ/L Potassium Level 4.1 MEQ/L Chloride Level 100 MEQ/L Carbon Dioxide Level 28.0 MEQ/L Anion Gap 8 MEQ/L Estimat Glomerular Filtration Rate 84 ML/MIN Total Creatine Kinase 132 U/L Creatine Kinase MB 1.7 NG/ML Troponin I LESS THAN 0.02 NG/ML MDM Medical Decision Making Medical Screen Exam Complete: Yes Emergency Medical Condition: Yes Medical Record Reviewed: Yes Differential Diagnosis NSTEMI, unstable angina, coronary vasospasm, PE, PTX, aortic dissection, pericarditis, myocarditis, endocarditis, PNA, esophageal disease, aneurysm, musculoskeletal etiologies, anxiety, cocaine/sympathomimetic abuse Narrative Course EKG shows a sinus rhythm at a rate of 56 normal axis no ischemic injury pattern CBC & BMP Diagram 11/07/17 12:20 Total Protein 8.6 H, Albumin 4.1, Calcium Level 8.9, Magnesium Level 2.7 H, Alkaline Phosphatase 123 H, Aspartate Amino Transf (AST/SGOT) 30, Alanine Aminotransferase (ALT/SGPT) 26, Total Bilirubin 0.4 Lipase normal Patient to follow up with primary care provider in a few days. Based on today' s workup with nothing is very doubtful the patient has an acute cardiopulmonary injury. He reports feeling much better after 2 mg IV morphine. With an INR of 2.3 thrombus is considered much less likely. Diagnosis Primary Impression: Costal margin pain Referrals: Primary Care Physician 2 days Scripts Hydrocodone-Acetaminophen (Hydrocodone-Acetaminophen) 5-325 mg Tab 1 TAB PO Q6H Y for PAIN SCALE 6 TO 10, #15 TAB 0 Refills Prov: Viktor Kunz MD 11/07/17 Disposition: 01 DISCHARGE HOME Condition: Stable Viktor Kunz MD Nov 07, 2017 12:25
[2017-11-07] MEDS ORDERED: MORPHINE SULFATE 2 MG/ML INJ IV PUSH ONE (12:30)
[2017-11-07] MEDS ORDERED: MORPHINE SULFATE 4 MG/ML INJ IV PUSH ONE (12:30)
[2017-11-07] MEDS ORDERED: SODIUM CHLORIDE 0.9% FLUSH 10 ML FLUSH IVF PRN (12:30)
[2017-11-07 12:36] LABS: AUTOMATED NEUTROPHIL # 4.9 TH/MM3 (1.8-7.7); BASOPHIL # 0.1 TH/MM3 (0-0.2); BASOPHIL % 0.7 % (0.0-2.0); EOSINOPHIL % 0.5 % (0.0-4.0); HEMATOCRIT 43.9 % (39.0-51.0); HEMOGLOBIN 13.8 GM/DL (13.0-17.0); LYMPHOCYTE # 1.3 TH/MM3 (1.0-4.8); MEAN CELL VOLUME 109.1 FL (80.0-100.0); MEAN CORPUSCULAR HEMOGLOBIN 34.3 PG (27.0-34.0); MEAN CORPUSCULAR HGB CONC 31.5 % (32.0-36.0); MEAN PLATELET VOLUME 8.5 FL (7.0-11.0); MONO % 13.3 % (0.0-8.0); NEUT % 67.5 % (16.0-70.0); PLATELET COUNT 493 TH/MM3 (150-450); RED BLOOD COUNT 4.02 MIL/MM3 (4.50-5.90); RED CELL DISTRIBUTION WIDTH 14.2 % (11.6-17.2); WHITE BLOOD COUNT 7.3 TH/MM3 (4.0-11.0)
[2017-11-07 12:40] VITALS: O2SAT 96
[2017-11-07 12:50] LABS: CHLORIDE 100 MEQ/L (98-107); SODIUM (NA) 136 MEQ/L (136-145)
[2017-11-07 12:53] LABS: CALCIUM 8.9 MG/DL (8.5-10.1)
[2017-11-07 12:54] LABS: ALBUMIN 4.1 GM/DL (3.4-5.0); BLOOD UREA NITROGEN 12 MG/DL (7-18); GLUCOSE,RANDOM 82 MG/DL (74-106); MAGNESIUM 2.7 MG/DL (1.5-2.5)
[2017-11-07 12:55] LABS: INTERNATIONAL NORMALIZED RATIO 2.3 RATIO; PROTHROMBIN TIME - PATIENT 23.6 SEC (9.8-11.6)
[2017-11-07 12:57] LABS: ALT (GPT) 26 U/L (12-78); AST (GOT) 30 U/L (15-37); CREATININE 0.86 MG/DL (0.60-1.30); GLOMERULAR FILTRATION RATE 84 ML/MIN (>89)
[2017-11-07 12:59] LABS: TOTAL BILIRUBIN ADULT 0.4 MG/DL (0.2-1.0); TOTAL PROTEIN 8.6 GM/DL (6.4-8.2)
[2017-11-07 13:00] LABS: ALKALINE PHOSPHATASE 123 U/L (45-117)
[2017-11-07 13:02] LABS: TROPONIN I LESS THAN 0.02 NG/ML (0.02-0.05)
[2017-11-07] MEDS ORDERED: ROSU1TAB4 PO (13:16)
[2017-11-07] MEDS ORDERED: HYDR-3516 PO (13:40)
[2017-11-07 13:55] VITALS: BP 139/78; TEMP 98.2
--- NOTE | 2017-11-08 23:42 | EKG ---
Date Performed: 11/07/2017 Time Performed: 12:03:01 PTAGE: 87 years EKG: SINUS BRADYCARDIA WITH FIRST DEGREE AV BLOCK ABNORMAL ECG PREVIOUS TRACING : 03/06/2017 13.04 Compared to the previous tracing, previously Afib with ST/T wave changes DOCTOR: Tenzin Kunz Interpretating Date/Time 11/08/2017 23:41:27
== END 2017-11-07 14:10 | disposition home or self-care (01) ==
LOC: PHED 11:55
DX: R00.1 Bradycardia, unspecified (principal); M94.0 Chondrocostal junction syndrome [Tietze]; I44.0 Atrioventricular block, first degree; E78.00 Pure hypercholesterolemia, unspecified; I10 Essential (primary) hypertension; Z86.73 Personal history of transient ischemic attack (TIA), and cerebral infarction without residual deficits; Z79.01 Long term (current) use of anticoagulants
CPT/HCPCS: 80053; 82550; 82552; 83735; 84484; 85025; 85610; 85730; 93005; 96374; 99284; J2270

== ENCOUNTER 2017-11-09 14:06 | Emergency (ER) | payer OTHER ==
[~2017-11-09] VITALS: Ht 177.8 cm; Wt 59.0 kg
[~2017-11-09 14:06] MED LIST changes: -CALCTAB19 PO; -ENAL2.5T PO; -HYDR-3288 PO; +HYDR-3516 PO; +ROSU1TAB4 PO; -TAMS5CAP PO; -VITA2000 PO; -VITA500012 PO
[2017-11-09] MEDS ORDERED: IOHEXOL 350 MG/ML 10 ML VIAL (for RAD DIAG) IVCONTRAST ONE (14:07)
[2017-11-09 14:09] VITALS: BP 171/81; PULSE 56; RESP 14; TEMP 98.2; O2SAT 96
[2017-11-09] MEDS ORDERED: SODIUM CHLORIDE 0.9% FLUSH 10 ML FLUSH IVF PRN (14:45)
--- NOTE | 2017-11-09 14:45 | PD ---
HPI Chief Complaint: Abdominal Pain Time Seen by Provider: 14:22 Travel History International Travel<30 days: No Contact w/Intl Traveler<30days: No Traveled to known affect area: No History of Present Illness HPI Patient is an 87-year-old male presents emergency department for second evaluation of upper abdominal pain. He was seen a few days ago had basic labs performed no imaging studies done. Has continued to have pain without nausea nor vomiting. He states it's worse and whenever he takes his Coumadin pill. Is coming by his is concerned that he is bleeding internally because the Coumadin pills hurting him when he swallows. Denies any diarrhea or constipation, denies any chest pain or shortness of breath. Locates the pain to just below the costal margin on bilateral upper quadrants. States symptoms are mild, waxing and waning, context as above, exacerbated by swallowing. PFSH Past Medical History Hx Anticoagulant Therapy: Yes (Warfarin ) Arthritis: Yes Asthma: No Blood Disorders: No Anxiety: No Depression: No Heart Rhythm Problems: No Cancer: No Cardiovascular Problems: Yes (high chol) High Cholesterol: Yes Chest Pain: No Congestive Heart Failure: No COPD: No Cerebrovascular Accident: Yes Diabetes: No Diminished Hearing: Yes (bilat aids) Endocrine: No Gastrointestinal Disorders: No GERD: No Genitourinary: Yes Headaches: No Hypertension: Yes Immune Disorder: No Implanted Vascular Access Dvce: No Kidney Stones: No Musculoskeletal: Yes Neurologic: Yes Psychiatric: No Reproductive: No Respiratory: No Immunizations Current: No Migraines: No Renal Failure: No Seizures: No Sleep Apnea: No Thyroid Disease: No Ulcer: No Past Surgical History Abdominal Surgery: Yes (HERNIA REPAIR, COLON SURGERY - NO TUMOR FOUND) Cardiac Surgery: No Ear Surgery: No Endocrine Surgery: No Eye Surgery: Yes (RIGHT EYE TURNED IN) Genitourinary Surgery: Yes (PROSTATE) Neurologic Surgery: No Oral Surgery: No Prostatectomy: Yes Thoracic Surgery: No Other Surgery: Yes Social History Alcohol Use: Yes (2-3 oz wine nightly ) Tobacco Use: No Substance Use: No Allergies-Medications (Allergen,Severity, Reaction): Coded Allergies: amlodipine (Unverified Adverse Reaction, Unknown, 11/09/17) muscle aches atorvastatin (Unverified Adverse Reaction, Unknown, 11/09/17) muscle aches pravastatin (Unverified Adverse Reaction, Unknown, 11/09/17) muscle aches simvastatin (Unverified Adverse Reaction, Unknown, 11/09/17) muscle aches Reported Meds & Prescriptions Reported Meds & Active Scripts Active Azithromycin 250 Mg Tab 250 Mg PO DIRECTED Take 2 tabs (500 mg) on day 1 then 1 tab daily x 4 days. Hydrocodone-Acetaminophen 5-325 mg Tab 1 Tab PO Q6H PRN Dok (Docusate Sodium) 100 Mg Cap 100 Mg PO BID 10 Days Cardizem LA (Diltiazem ER 24 HR) 180 Mg Billy 180 Mg PO DAILY PRN Reported Hydrea (Hydroxyurea) 500 Mg Cap 500 Mg PO DAILY Aspir-Low (Aspirin) 81 Mg Tabdr 81 Mg PO DAILY Warfarin 3 Mg Tab 3 Mg PO DAILY Review of Systems Except as stated in HPI: all other systems reviewed are Neg Physical Exam Narrative GENERAL: Well-developed well-nourished, elderly male in no obvious distress. SKIN: Focused skin assessment warm/dry. HEAD: Atraumatic. Normocephalic. EYES: Pupils equal and round. No scleral icterus. No injection or drainage. ENT: No nasal bleeding or discharge. Mucous membranes pink and moist. NECK: Trachea midline. No JVD. CARDIOVASCULAR: Regular rate and rhythm. No murmur appreciated. RESPIRATORY: No accessory muscle use. Clear to auscultation. Breath sounds equal bilaterally. GASTROINTESTINAL: Abdomen soft, non-tender, nondistended. Hepatic and splenic margins not palpable. Rebound no percussive tenderness no CVA tenderness. Normal active bowel sounds. MUSCULOSKELETAL: No obvious deformities. No clubbing. No cyanosis. No edema. NEUROLOGICAL: Awake and alert. No obvious cranial nerve deficits. Motor grossly within normal limits. Normal speech. PSYCHIATRIC: Appropriate mood and affect; insight and judgment normal. Data Data Last Documented VS Vital Signs Date Time Temp Pulse Resp B/P (MAP) Pulse Ox O2 Delivery O2 Flow Rate FiO2 11/09/17 19:32 11/09/17 14:59 97 Room Air 11/09/17 14:59 18 11/09/17 14:09 98.2 56 Orders Orders Complete Blood Count With Diff (11/09/17 14:35) Comprehensive Metabolic Panel (11/09/17 14:35) Magnesium (Mg) (11/09/17 14:35) Prothrombin Time / Inr (Pt) (11/09/17 14:35) Act Partial Throm Time (Ptt) (11/09/17 14:35) Troponin I (11/09/17 14:35) Chest, Single Ap (11/09/17 14:35) Ecg Monitoring (11/09/17 14:35) Iv Access Insert/Monitor (11/09/17 14:35) Oximetry (11/09/17 14:35) Oxygen Administration (11/09/17 14:35) Sodium Chloride 0.9% Flush (Ns Flush) (11/09/17 14:45) Lactic Acid (11/09/17 14:35) Oral Contrast - Adult (11/09/17 14:47) Diatrizoate Liq ( Gastroview Liq) (11/09/17 15:03) Al-Mag Hy-Si 40-40-4 Mg/Ml Liq (Mag-Al P (11/09/17 15:45) Lidocaine 2% Viscous (Xylocaine 2% Visco (11/09/17 15:45) Cta Thor Abd Aorta W Iv C W3d (11/09/17 ) Iohexol 350 Inj (Omnipaque 350 Inj) (11/09/17 14:07) TLSO (11/09/17 ) Ed Discharge Order (11/09/17 18:56) Labs Laboratory Tests Test 11/09/17 14:56 White Blood Count 6.6 TH/MM3 Red Blood Count 3.30 MIL/MM3 Hemoglobin 12.2 GM/DL Hematocrit 36.0 % Mean Corpuscular Volume 108.9 FL Mean Corpuscular Hemoglobin 36.9 PG Mean Corpuscular Hemoglobin Concent 33.9 % Red Cell Distribution Width 14.0 % Platelet Count 375 TH/MM3 Mean Platelet Volume 8.7 FL Neutrophils (%) (Auto) 71.3 % Lymphocytes (%) (Auto) 16.7 % Monocytes (%) (Auto) 10.6 % Eosinophils (%) (Auto) 0.8 % Basophils (%) (Auto) 0.6 % Neutrophils # (Auto) 4.7 TH/MM3 Lymphocytes # (Auto) 1.1 TH/MM3 Monocytes # (Auto) 0.7 TH/MM3 Eosinophils # (Auto) 0.1 TH/MM3 Basophils # (Auto) 0.0 TH/MM3 CBC Comment DIFF FINAL Differential Comment Prothrombin Time 30.3 SEC Prothromb Time International Ratio 3.0 RATIO Activated Partial Thromboplast Time 33.8 SEC Blood Urea Nitrogen 12 MG/DL Creatinine 0.76 MG/DL Random Glucose 103 MG/DL Total Protein 7.9 GM/DL Albumin 3.8 GM/DL Calcium Level 9.0 MG/DL Magnesium Level 2.1 MG/DL Alkaline Phosphatase 110 U/L Aspartate Amino Transf (AST/SGOT) 30 U/L Alanine Aminotransferase (ALT/SGPT) 22 U/L Total Bilirubin 0.3 MG/DL Sodium Level 135 MEQ/L Potassium Level 4.3 MEQ/L Chloride Level 103 MEQ/L Carbon Dioxide Level 27.1 MEQ/L Anion Gap 5 MEQ/L Estimat Glomerular Filtration Rate 97 ML/MIN Lactic Acid Level 1.4 mmol/L Troponin I LESS THAN 0.02 NG/ML MDM Medical Decision Making Medical Screen Exam Complete: Yes Emergency Medical Condition: Yes Differential Diagnosis Esophagitis, gastritis, reflux, peptic ulcer disease. Acute myocardial infarction seems unlikely, PE seems highly unlikely. AAA. Aortic dissection. Narrative Course Patient roomed in emergency department, overall I think it's a fairly benign presentation of abdominal pain. However this is his second presentation I think he deserves a more thorough workup. Initially slotted for a by mouth contrast CT study of his abdomen this was changed to a CTA of his aorta. Last 24 hours Impressions Chest X-Ray 11/09/17 1435 Signed Impressions: Service Date/Time: Thursday, November 09, 2017 15:35 - CONCLUSION: Mild patchy opacity at the left lung base. Brandon Rodriguez MD Aorta CTA 11/09/17 0000 Signed Impressions: Service Date/Time: Thursday, November 09, 2017 17:29 - CONCLUSION: 1. No evidence of aortic dissection or aneurysm. 2. 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 No major vessel high-grade stenosis identified. 3. Multiple age-indeterminate thoracic and lumbar compression fracture deformities. Brandon Rodriguez MD EKG was reassuring, the patient will be fitted with a TLSO brace on discharge. Discussed with the patient small amount of atelectasis versus pneumonia in the left base. We'll cover with azithromycin. Discussed follow-up with the neurosurgeon and returned ED criteria. He is stable for discharge his pain well under control. Diagnosis Primary Impression: Chest wall pain Additional Impressions: Abdominal pain Pneumonia Med/Other Pt SpecificInfo: Prescription(s) given Scripts Azithromycin (Azithromycin) 250 Mg Tab 250 MG PO DIRECTED for Infection, #6 TAB 0 Refills Take 2 tabs (500 mg) on day 1 then 1 tab daily x 4 days. Prov: Jonathan Laws MD 11/09/17 Disposition: 01 DISCHARGE HOME Condition: Stable Jonathan Laws MD Nov 09, 2017 14:45
[2017-11-09 14:59] VITALS: RESP 18; O2SAT 97
[2017-11-09] MEDS ORDERED: DIATRIZOATE MEGLUM/DIATRIZOATE SOD 9 ML CUP ONE (15:03)
[2017-11-09 15:36] LABS: PROTHROMBIN TIME - PATIENT 30.3 SEC (9.8-11.6)
[2017-11-09] MEDS ORDERED: ALUMINUM/MAGNESIUM/SIMETH 30 ML CUP PO ONE (15:45)
[2017-11-09] MEDS ORDERED: LIDOCAINE VISCOUS 2% SOLN 15 ML UDC PO ONE (15:45)
[2017-11-09 15:46] LABS: AUTOMATED NEUTROPHIL # 4.7 TH/MM3 (1.8-7.7); BASOPHIL % 0.6 % (0.0-2.0); EOSINOPHIL # 0.1 TH/MM3 (0-0.4); EOSINOPHIL % 0.8 % (0.0-4.0); HEMOGLOBIN 12.2 GM/DL (13.0-17.0); LYMPH % 16.7 % (9.0-44.0); LYMPHOCYTE # 1.1 TH/MM3 (1.0-4.8); MEAN CELL VOLUME 108.9 FL (80.0-100.0); MEAN CORPUSCULAR HEMOGLOBIN 36.9 PG (27.0-34.0); MEAN CORPUSCULAR HGB CONC 33.9 % (32.0-36.0); MEAN PLATELET VOLUME 8.7 FL (7.0-11.0); MONO % 10.6 % (0.0-8.0); MONOCYTE # 0.7 TH/MM3 (0-0.9); NEUT % 71.3 % (16.0-70.0); PLATELET COUNT 375 TH/MM3 (150-450); WHITE BLOOD COUNT 6.6 TH/MM3 (4.0-11.0)
[2017-11-09 15:52] LABS: ALBUMIN 3.8 GM/DL (3.4-5.0); ALT (GPT) 22 U/L (12-78); AST (GOT) 30 U/L (15-37); BICARBONATE 27.1 MEQ/L (21.0-32.0); BLOOD UREA NITROGEN 12 MG/DL (7-18); CHLORIDE 103 MEQ/L (98-107); CREATININE 0.76 MG/DL (0.60-1.30); GLOMERULAR FILTRATION RATE 97 ML/MIN (>89); GLUCOSE,RANDOM 103 MG/DL (74-106); MAGNESIUM 2.1 MG/DL (1.5-2.5); SODIUM (NA) 135 MEQ/L (136-145)
[2017-11-09 15:56] LABS: ALKALINE PHOSPHATASE 110 U/L (45-117); TOTAL BILIRUBIN ADULT 0.3 MG/DL (0.2-1.0); TOTAL PROTEIN 7.9 GM/DL (6.4-8.2); TROPONIN I LESS THAN 0.02 NG/ML (0.02-0.05)
--- NOTE | 2017-11-09 16:13 | RADRPT ---
EXAM DATE/TIME: 11/09/2017 15:35 [facility] COMPARISON: CHEST SINGLE AP, March 04, 2017, 10:51. INDICATIONS : Chest pain. MEDICAL HISTORY : CVA. MT. Hypercholesterol. Hypertension. Patient stated previous stroke. SURGICAL HISTORY : Hernia repair. Colon surgery. Prostatectomy. ENCOUNTER: Initial ACUITY: 1 week PAIN SCORE: 10/10 LOCATION: Bilateral chest FINDINGS: 2 AP views of the chest. Mild patchy opacity at the left lung base similar to prior study indicating atelectasis. Lungs otherwise clear. No evidence of pleural effusion or pneumothorax. Cardiomediastina l silhouette within normal limits for AP technique. CONCLUSION: Mild patchy opacity at the left lung base. Brandon Rodriguez MD on November 09, 2017 at 16:11 Board Certified Radiologist. This report was verified electronically.
--- NOTE | 2017-11-09 18:44 | RADRPT ---
EXAM DATE/TIME: 11/09/2017 17:29 [facility] COMPARISON: No previous studies available for comparison. INDICATIONS : Upper abdominal pain; evaluate for abdominal aortic aneurysm. IV CONTRAST: 90 cc Omnipaque 350 (iohexol) IV RADIATION DOSE: 7.31 CTDIvol (mGy) MEDICAL HISTORY : Cardiovascular disease. Stroke Hypertension. SURGICAL HISTORY : Prostatectomy. Colon surgery. ENCOUNTER: Initial ACUITY: 1 week PAIN SCALE: 6/10 LOCATION: Bilateral upper quadrant TECHNIQUE: Volumetric scanning was performed using a multi-row detector CT scanner. The data was post processed with a variety of visualization algorithms including full volume maximum intensity projection, multi -planar sliding thin slab reformation, curved planar reformation, and surface rendering techniques. Using automated exposure control and adjustment of the mA and/or kV according to patient size, radiat ion dose was kept as low as reasonably achievable to obtain optimal diagnostic quality images. DICOM format image data is available electronically for review and comparison. FINDINGS: LUNGS: Patchy consolidation/atelectasis left lower lobe, lingula, and right middle lobe. MEDIASTINUM: Coronary artery calcifications noted. No abnormally enlarged lymph nodes by CT criteria. No axillary or hilar abnormalities are identified. ABDOMEN: Liver, gallbladder, spleen, kidneys, pancreas and adrenal glands within normal limits. No bowel dilat ation. No free air or free fluid. Appendix not identified. PELVIS: No evidence of free fluid or pelvic mass. No abnormally enlarged inguinal or retroperitoneal lymph no gunnar are present. The bladder is unremarkable. THORACIC AORTA: Diffuse atherosclerotic disease of the thoracic aorta. Diameter is within normal limits. No evidence of aneurysm or dissection. ABDOMINAL AORTA: Diffuse atherosclerotic disease of the abdominal aorta. No evidence of aneurysm or dissection. PELVIC VESSELS: The internal iliac and external iliac vessels are patent without aneurysm or stenosis. Multiple age-indeterminate mid thoracic vertebral body compression fractures. Age-indeterminate moder ate severity compression fracture deformity of the L3 vertebral body. Left-sided hip screw in place. CONCLUSION: 1. No evidence of aortic dissection or aneurysm. 2. 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 No major vessel high-grade stenosis vijay ntified. 3. Multiple age-indeterminate thoracic and lumbar compression fracture deformities. Brandon Rodriguez MD on November 09, 2017 at 18:34 Board Certified Radiologist. This report was verified electronically.
[2017-11-09] MEDS ORDERED: AZIT250T3 PO (19:09)
== END 2017-11-09 19:33 | disposition home or self-care (01) ==
LOC: NEPC 14:06
DX: R07.89 Other chest pain (principal); R10.10 Upper abdominal pain, unspecified; J18.9 Pneumonia, unspecified organism; E78.00 Pure hypercholesterolemia, unspecified; I10 Essential (primary) hypertension; Z79.899 Other long term (current) drug therapy; Z79.01 Long term (current) use of anticoagulants
CPT/HCPCS: 71010; 71275; 74174; 80053; 83605; 83735; 84484; 85025; 85610; 85730; 99285; Q9963; Q9967